=== PATIENT | female | born 1955 | race Asian ===

== ENCOUNTER 2019-09-20 20:42 | Inpatient (IN) | payer BC ==
[~2019-09-20] VITALS: Ht 160 cm; Wt 72.6 kg
[2019-09-20 20:42] VITALS: BP_SYST 137
[~2019-09-20 20:42] MED LIST: ALBMDI INH; LISI5TAB PO; METF1000 PO; METO50TA7 PO; MONT10TA25 PO; NOR10 PO; SITA1TAB10 PO; TRIA1CAP53 PO
[2019-09-20] MEDS ORDERED: AMIO100T4 PO (20:53)
[2019-09-20] MEDS ORDERED: COLC0.6T67 PO (20:53)
[2019-09-20] MEDS ORDERED: NOR10 PO (20:53)
[2019-09-20] MEDS ORDERED: BENZ-16 PO (20:53)
[2019-09-20] MEDS ORDERED: ALLO300T2 PO (20:53)
[2019-09-20] MEDS ORDERED: RIFA300C2 PO (21:03)
[2019-09-20] MEDS ORDERED: FENO67CA PO (21:03)
[2019-09-20] MEDS ORDERED: ACET-2165 PO (21:03)
[2019-09-20] MEDS ORDERED: PRO40 PO (21:03)
[2019-09-20] MEDS ORDERED: DEXT50DI5 IV (21:03)
[2019-09-20] MEDS ORDERED: ENOX40DI8 SQ (21:03)
[2019-09-20] MEDS ORDERED: SSNOVOLOG SUBCUT (21:03)
[2019-09-20] MEDS ORDERED: VANC1.2525 IV (21:03)
--- NOTE | 2019-09-20 21:04 | NUR ---
Medication reconciliation completed with information provided by patient's order summary from [facility]. Any prior medication reconciliation on file was reviewed and corrected.
--- NOTE | 2019-09-20 21:05 | NUR ---
Patient's code status is full code paperwork completed and placed in chart.
--- NOTE | 2019-09-20 21:08 | NUR ---
Placed in room 5. Placed on youtuber, blood pressure machine and pulse oximeter. To gown for exam. Side rails up.
--- NOTE | 2019-09-20 21:13 | NUR ---
Pt BIB EMS from [facility] with with c/o SOB. Pt A&Ox4. Pt states SOB began today after physical therapy. Pt states she discharged from [facility] yesterday after a 6 week stay for septicemia of the right knee. Pt has PICC line located in right AC where she states she is getting Vancomycin and Rifampin. Pt denies chest pain, fever, cough, nausea, and vomiting. Pt states right knee pain and states pain 6/10. Pt presents with bilateral 2+ pitting edema to lower extremities. Breath sounds are bilaterally clear with no use of accessory muscles. Will continue to monitor.
--- NOTE | 2019-09-20 22:00 | NUR ---
Patient moved to bed 2
--- NOTE | 2019-09-20 22:09 | NUR ---
ER Dr. Kaur at bedside examining patient.
--- NOTE | 2019-09-20 22:35 | NUR ---
Radiology at bedside.
[2019-09-20 23:32] LABS: CALCIUM 7.8 mg/dL (8.4-11.0); CREATININE 0.91 mg/dL (0.55-1.30); POTASSIUM 4.5 mmol/L (3.5-5.1)
[2019-09-20 23:33] LABS: PROTHROMBIN TIME 9.8 SECS (9.5-12.5)
[2019-09-20 23:40] LABS: ALBUMIN 1.5 g/dL (3.4-4.8); TOTAL BILIRUBIN 0.5 mg/dL (0.0-1.0)
[2019-09-20 23:54] LABS: HEMOGLOBIN 8.3 g/dL (12.0-16.0); MEAN CORPUSCULAR HEMOGLOBIN 30 pg (27-31); MEAN CORPUSCULAR HGB CONC 33 % (32-36); MEAN CORPUSCULAR VOLUME 90 fL (79.0-98.0); PLATELET COUNT (AUTO) 344 K/uL (130-430); RED BLOOD CELL COUNT(AUTO) 2.78 MIL/uL (4.2-6.2); RED CELL DISTRIBUTION WIDTH 15.5 % (9.0-15.0)
--- NOTE | 2019-09-20 23:54 | NUR ---
Pt medicated per MD orders. Pt tolerated well. Will continue to monitor.
[2019-09-20 23:57] LABS: WHITE BLOOD COUNT (AUTO) 1.6 K/uL (4.8-10.8)
[2019-09-21] MEDS ORDERED: IBUPROFEN 400 MG TABLET ONE ×2 (00:03→16:09)
--- NOTE | 2019-09-21 00:13 | NUR ---
Pt given perineal care and linens changed. Pt tolerated well. Will continue to monitor.
--- NOTE | 2019-09-21 00:50 | NUR ---
ER Dr. Bhardwaj at bedside examining patient.
--- NOTE | 2019-09-21 01:16 | NUR ---
550 mL urine output from Montero bag emptied.
[2019-09-21 01:19] LABS: ATYPICAL LYMPHOCYTES % 0 % (0-0); BAND % (MANUAL) 0 % (0-6); LYMPHOCYTES % (MANUAL) 36 % (20-46)
[2019-09-21 01:20] LABS: BASOPHILS % (MANUAL) 0 % (0-2); EOSINOPHILS % (MANUAL) 0 % (0-7); MONOCYTES % (MANUAL) 20 % (0-11)
[2019-09-21] MEDS ORDERED: BENZONATATE 100 MG CAPSULE (TESSALON) PO PRN (01:30)
[2019-09-21] MEDS ORDERED: DEXTROSE 50% JECT 50 ML DISP.SYRIN IV PRN (01:30)
[2019-09-21] MEDS ORDERED: ACETAMINOPHEN 325 MG TABLET PO PRN ×2 (01:30)
--- NOTE | 2019-09-21 01:38 | NUR ---
Attempted to access CT with contrast consent. Pt states, "I will be allergic to that." MD Kaur made aware. MD Kaur states they can do VQ scan. Will continue to monitor.
--- NOTE | 2019-09-21 01:53 | NUR ---
Transfer to Telemetry 126A via ACLS protocol. Licensed nurse present. IV present no signs or symptoms of infiltration.
--- NOTE | 2019-09-21 02:03 | NUR ---
ADMISSION NOTE Received patient from ER via gurney. Patient admitted with diagnosis of CHF. Patient is awake, alert, oriented X 3. Patient oriented to hospital room, call light, toileting, pain management and safety-teach back done. Patient informed that MYLENE Smith will be primary nurse and that their room number is 126 A. Personal belongings checked and Belongings List documented. Call light within reach.
[2019-09-21 02:33] VITALS: BP_SYST 151
[2019-09-21] MEDS ORDERED: VANCOMYCIN HCL 1 GM/NS PREMIX 250 ML IV SCH (03:00)
--- NOTE | 2019-09-21 03:00 | NUR ---
INITIAL NOTE AT INITIAL ASSESSMENT, PATIENT IS RESTING IN BED, STABLE, NO SIGNS OF RESPIRATORY DISTRESS. PATIENT VERBALIZES TOLERABLE PAIN. PLAN OF CARE FOR THE EVENING IS COMMUNICATED WITH THE PATIENT AND HER AT BEDSIDE. PATIENT SUCCESSFULLY DEMONSTRATES CORRECT USAGE OF CALL LIGHT AT THIS TIME. BED IS LOCKED, ALARMED, AND AT THE LOWEST LEVEL. FALL, SAFETY, RESPIRATORY, ASPIRATION, AND ISOLATION PRECAUTIONS WILL BE TAKEN THROUGHOUT THE SHIFT.
[2019-09-21] MEDS ORDERED: IBUPROFEN 400 MG TABLET PO ONE ×3 (03:30→07:15)
--- NOTE | 2019-09-21 03:46 | NUR ---
CONSULTATION PAGED/CALLED Reason for Consultation: CHF Person Who was Notified: NAUN RIDES SUPERVISOR 22 Consulting Physician: CEDRIC Engine Repair Supervisor Specialty: Ordering Physician: KARLIE
[2019-09-21] MEDS ORDERED: VANCOMYCIN HCL 1000 MG/VIAL IV ONE (04:27)
--- NOTE | 2019-09-21 04:30 | NUR ---
BIPAP PLACED BIPAP PLACED AT THIS TIME BY RT PER PATIENT REQUEST. SHE IS TOLERATING WELL.
[2019-09-21 04:46] VITALS: BP_SYST 151
--- NOTE | 2019-09-21 05:00 | NUR ---
WOUND CARE/ HYGIENE NOTE WOUND CARE AND HYGIENE CARE PROVIDE AT THIS TIME, PATIENT TOLERATED WELL. SHE IS REPOSITIONED FOR COMFORT. CALL LIGHT IS WITHIN REACH. BED IS LOCKED, ALARMED, AND AT THE LOWEST LEVEL.
[2019-09-21] MEDS: NORMAL SALINE 5 ML DISP.SYRIN IVF SCH ×2 (06:34→22:00)
--- NOTE | 2019-09-21 06:35 | NUR ---
CLOSING NOTE PATIENT SLEPT WELL THROUGHOUT THE SHIFT. AT THIS TIME, PATIENT IS RESTING IN BED, STABLE, NO SIGNS OF RESPIRATORY DISTRESS. CALL LIGHT IS WITHIN REACH. BED IS LOCKED, ALARMED, AND AT THE LOWEST LEVEL. FALL, SAFETY, RESPIRATORY AND ISOLATION PRECAUTIONS HAVE BEEN TAKEN THROUGHOUT THE SHIFT.
[2019-09-21 07:44] LABS: BASOPHILS # (AUTO) 0.1 K/uL (0.0-0.2); BASOPHILS % (AUTO) 3.4 % (0.0-2.0); EOSINOPHILS % (AUTO) 0.6 % (0.0-4.0); HEMATOCRIT 22.9 % (36-48); HEMOGLOBIN 7.7 g/dL (12.0-16.0); LYMPHOCYTES # (AUTO) 0.6 K/uL (1.0-5.5); LYMPHOCYTES % (AUTO) 36.6 % (20.5-51.5); MEAN CORPUSCULAR HEMOGLOBIN 31 pg (27-31); MEAN CORPUSCULAR HGB CONC 34 % (32-36); MEAN CORPUSCULAR VOLUME 90 fL (79.0-98.0); MONOCYTES # (AUTO) 0.5 K/uL (0.0-1.0); MONOCYTES % (AUTO) 31.5 % (1.7-9.3); NEUTROPHILS % (AUTO) 27.9 % (40.0-70.0); PLATELET COUNT (AUTO) 329 K/uL (130-430); RED BLOOD CELL COUNT(AUTO) 2.54 MIL/uL (4.2-6.2); RED CELL DISTRIBUTION WIDTH 15.3 % (9.0-15.0)
[2019-09-21 07:52] LABS: ALBUMIN 1.6 g/dL (3.4-4.8); CALCIUM 7.8 mg/dL (8.4-11.0); CREATININE 0.93 mg/dL (0.55-1.30); POTASSIUM 4.5 mmol/L (3.5-5.1); TOTAL BILIRUBIN 0.5 mg/dL (0.0-1.0)
[2019-09-21 08:00] VITALS: BP_SYST 130
--- NOTE | 2019-09-21 08:00 | NUR ---
initial notes rec patient awake alert with ivf infusing well on the r upper arm picc line. no infiltration noted. resp easy and unlabored. no sob noted. bed to the lowest position and side rails up and locked. call light within reached.
[2019-09-21 08:06] LABS: NEUTROPHILS # (AUTO) 0.5 K/uL (1.8-7.7); WHITE BLOOD COUNT (AUTO) 1.6 K/uL (4.8-10.8)
[2019-09-21] MEDS: COLCHICINE 0.6 MG TABLET PO SCH ×2 (09:00→13:06)
[2019-09-21] MEDS ORDERED: ENOXAPARIN SODIUM 40 MG/0.4 ML SYRINGE SQ SCH (09:00)
[2019-09-21] MEDS ORDERED: FUROSEMIDE 40 MG/4 ML VIAL IVP ONE (09:00)
[2019-09-21] MEDS: FUROSEMIDE 40 MG/4 ML VIAL IVP SCH ×2 (09:28→22:04)
[2019-09-21] MEDS: RIFAMPIN 300 MG CAPSULE PO SCH ×2 (09:29→22:04)
[2019-09-21] MEDS: AMIODARONE HCL 200 MG TABLET PO SCH (09:30)
[2019-09-21] MEDS: ALLOPURINOL 300 MG TABLET (ZYLOPRIM) PO SCH (09:30)
[2019-09-21] MEDS: amLODIPine BESYLATE 10 MG TABLET PO SCH (09:31)
[2019-09-21] MEDS: PANTOPRAZOLE SODIUM 40 MG TAB PO SCH (09:31)
--- NOTE | 2019-09-21 09:46 | NUR ---
Nutrition Update Noel Scale 15 noted. Pt admitted for CHF. Diet: [facility] BMI: 29.9 kg/m2 RD to follow per nutrition care standards.
[2019-09-21] MEDS ORDERED: VANCOMYCIN HCL 1,250 MG in NS 250 ML IV SCH (10:00)
--- NOTE | 2019-09-21 10:49 | NUR ---
CONSULTATION PAGED/CALLED Reason for Consultation: SOB Person Who was Notified: DR. ABRAHAM Consulting Physician: DR. ABRAHAM Field Foreman Specialty: BLENDING MACHINE OPERATOR Ordering Physician: DR. LILLY
--- NOTE | 2019-09-21 10:50 | NUR ---
CONSULTATION PAGED/CALLED Reason for Consultation: CELLULITIS Person Who was Notified: WENDY Consulting Physician: DR. LAZARO Die Technician Specialty: I/D Ordering Physician: DR. LILLY
[2019-09-21] MEDS ORDERED: *LOVENOX 1MG/KG Q12H/PHARMACY XX SCH (11:00)
[2019-09-21] MEDS ORDERED: ENOXAPARIN SODIUM 40 MG/0.4 ML SYRINGE SUBCUT ONE (11:30)
--- NOTE | 2019-09-21 12:00 | NUR ---
rounds continue to be sitting at the commode at bedside. so sob noted.
--- NOTE | 2019-09-21 12:06 | NUR ---
rounds seen by dr hidalgo and with orders.no hypo hypo / hyper glycemic reaction nted. call flores mitchell
[2019-09-21] MEDS: PIPERACILLIN/TAZO 3.375/DEX-IS 50 ML IV SCH ×2 (13:05→13:06)
[2019-09-21 13:19] VITALS: BP_SYST 128
--- NOTE | 2019-09-21 13:52 | NUR ---
Wound Evaluation: Wound Consult ordered for Low Noel Score. Patient evaluated for a low Noel score of 15. Patient was awake, alert, oriented and received in a Morelia Bed with an IsoFlex WOODY mattress. Patient needs assist to turn in bed. Recommend encourage and assist patient as needed with repositioning side to side only every 2 hours with pillow support. Elevate, off-load and float bilateral heels with pillows. Offload pressure areas with pillows for pressure re-distribution. Perform skin care and monitor skin integrity Q shift. Use moisture barrier cream on moisture susceptible areas QID and PRN for soiling. Initiate low air-loss therapy.
[2019-09-21] MEDS ORDERED: IOHEXOL 350 mgI/mL, 150 ML INFUS..BTL IV ONE (15:10)
[2019-09-21 16:13] VITALS: BP_SYST 135
--- NOTE | 2019-09-21 17:13 | NUR ---
Dietitian Recommendations * Recommend continuing [facility] diet * Encourage increase PO intakes LP, RD Please refer to Nutrition Assessment for details. Addendum: 09/21/19 at [address] Amended: Links added.
[2019-09-21] MEDS ORDERED: *CUBICIN 6 MG/KG Q24H/PHARMACY XX PRN (17:30)
[2019-09-21] MEDS ORDERED: DAPTOmycin 500 MG in NS 50 ML IV SCH (18:00)
--- NOTE | 2019-09-21 18:10 | NUR ---
RT NOTE: 1800 Pt taken off BiPAP and placed on 3LPM NC for CT transport.
--- NOTE | 2019-09-21 19:00 | NUR ---
closing notes pt is back in the room. no sob noted. resting comfortably witha bipap. no osb noted.
--- NOTE | 2019-09-21 19:53 | NUR ---
PATIENT RECIEVED WITH COMPLAINTS OF PAIN TO THE RIGHT KNEE AND IS AWARE THAT THE PAIN MEDICATION IBUBROFEN IS NOT YET DUE.CUBICIN DOSE COMPLETED AND TOLERATED WITH NO UNTOWARD MANIFSTATION
--- NOTE | 2019-09-21 19:59 | NUR ---
HBG 7.7 /DR LILLY IS AWARE WITH NO ORDERS FOR IT, Addendum: 09/21/19 at 2221 by Zero pipeline integrity engineer LOVENOX DOSE GIVEN ORDERED
[2019-09-21 20:00] VITALS: BP_SYST 122
[2019-09-21] MEDS ORDERED: ENOXAPARIN SODIUM 80 MG/0.8 ML SYRINGE SUBCUT SCH (21:00)
--- NOTE | 2019-09-21 22:37 | NUR ---
CURRENTLY ON BIPAP AND TOLERATING WELL.
[2019-09-22] MEDS: IBUPROFEN 400 MG TABLET PO PRN ×4 (00:31→20:28)
--- NOTE | 2019-09-22 01:00 | NUR ---
IS OFF BIPAP AND PLACED PN 02 AT 2LITERS NASAL CANNULA
[2019-09-22 01:11] VITALS: BP_SYST 151
[2019-09-22] MEDS: NORMAL SALINE 5 ML DISP.SYRIN IVF SCH ×3 (05:50→20:33)
[2019-09-22 06:07] LABS: CREATININE 0.95 mg/dL (0.55-1.30); POTASSIUM 3.4 mmol/L (3.5-5.1)
[2019-09-22 06:35] LABS: EOSINOPHILS % (AUTO) 0.5 % (0.0-4.0); HEMATOCRIT 22.6 % (36-48); HEMOGLOBIN 7.5 g/dL (12.0-16.0); LYMPHOCYTES # (AUTO) 0.5 K/uL (1.0-5.5); LYMPHOCYTES % (AUTO) 40.9 % (20.5-51.5); MEAN CORPUSCULAR HEMOGLOBIN 30 pg (27-31); MEAN CORPUSCULAR HGB CONC 33 % (32-36); MEAN CORPUSCULAR VOLUME 90 fL (79.0-98.0); MONOCYTES # (AUTO) 0.4 K/uL (0.0-1.0); MONOCYTES % (AUTO) 33.7 % (1.7-9.3); NEUTROPHILS % (AUTO) 21.9 % (40.0-70.0); PLATELET COUNT (AUTO) 336 K/uL (130-430); RED CELL DISTRIBUTION WIDTH 15.6 % (9.0-15.0)
--- NOTE | 2019-09-22 07:45 | NUR ---
INITIAL NOTE PT AWAKE, RESTING IN BED. AT BEDSIDE. PT ON 2L NC TOLERATING WELL. IV SALINE LOCKED. DARLING DRAINING TO GRAVITY. CALL LIGHT WITHIN REACH, BED IN LOW AND LOCKED POSITION WITH BED ALARM ON.
[2019-09-22] MEDS: FUROSEMIDE 40 MG/4 ML VIAL IVP SCH ×2 (08:15→20:27)
[2019-09-22] MEDS: ALLOPURINOL 300 MG TABLET (ZYLOPRIM) PO SCH (08:16)
[2019-09-22] MEDS: PANTOPRAZOLE SODIUM 40 MG TAB PO SCH (08:16)
[2019-09-22] MEDS: amLODIPine BESYLATE 10 MG TABLET PO SCH (08:16)
[2019-09-22] MEDS: COLCHICINE 0.6 MG TABLET PO SCH (08:17)
[2019-09-22] MEDS: FENOFIBRATE NANOCRYSTALLIZED 48 MG TABLET (TRICOR) PO SCH (08:17)
[2019-09-22] MEDS: RIFAMPIN 300 MG CAPSULE PO SCH ×2 (08:17→20:27)
[2019-09-22] MEDS: AMIODARONE HCL 200 MG TABLET PO SCH (08:17)
[2019-09-22 08:32] LABS: WHITE BLOOD COUNT (AUTO) 1.3 K/uL (4.8-10.8)
[2019-09-22 08:33] LABS: NEUTROPHILS # (AUTO) 0.3 K/uL (1.8-7.7)
[2019-09-22] MEDS: IPRATROPIUM/ALBUTEROL SULFATE 3 ML AMPUL.NEB (DUONEB) INH PRN ×2 (08:38→14:54)
--- NOTE | 2019-09-22 09:00 | NUR ---
DR. ABRAHAM/RN ROUNDS PT COMPLAINING OF PAIN. EDUCATED PT USES AND SIDE EFFECTS OF MOTRIN, PT VERBALIZED UNDERSTANDING, MOTRIN ADMINISTERED. MD AT BEDSIDE EXAMINING PT. INFORMED MD THAT PT WBC 1.3, ABSOLUTE NEUTROPHIL 0.3. SCHEDULED LOVENOX 80MG WAS NOT ADMINISTERED, MD AWARE AND AGREEABLE, MD TO CHANGE LOVENOX DOSAGE TO 30MG DAILY. VERIFIED WITH READ BACK. Addendum: 09/22/19 at 1416 by Benita Cason RN MD TO REQUEST INCENTIVE SPIROMETER AT BEDSIDE. EDUCATED PT ON INCENTIVE SPIROMETER, PT DEMONSTRATED BACK, 500 VOLUME.
--- NOTE | 2019-09-22 09:10 | NUR ---
CRITICAL LAB/DR. BLACK SPOKE WITH MD VIA PHONE, INFORMED MD WBC 1.3, ABSOLUTE NEUTROPHILS 0.3. MD TO PLACE PT ON REVERSE ISOLATION. VERIFIED WITH READ BACK.
[2019-09-22] MEDS ORDERED: ENOXAPARIN SODIUM 30 MG/0.3 ML SYRINGE SUBCUT ONE (09:15)
--- NOTE | 2019-09-22 11:45 | NUR ---
UP WITH PHYSICAL THERAPY ASSISTED PATIENT UP TO CHAIR WITH PHYSICAL THERAPY. PT TOLERATED WELL. REMOVED 2L NC, PT PLACED ON BIPAP.
[2019-09-22 13:20] VITALS: BP_SYST 122
--- NOTE | 2019-09-22 13:45 | NUR ---
RN ROUNDS PT IN BED BEING FED BY DAUGHTER AT BEDSIDE. PT DENIES ANY PAIN OR DISCOMFORT AT THIS TIME. WILL CONTINUE TO MONITOR.
--- NOTE | 2019-09-22 15:45 | NUR ---
RN ROUNDS PT RESTING QUIETLY, NO ACUTE DISTRESS NOTED, BREATHING EVEN AND UNLABORED. PT ON BIPAP.
[2019-09-22 16:26] VITALS: BP_SYST 146
--- NOTE | 2019-09-22 16:49 | NUR ---
PHYSICAL THERAPY CO-SIGN The Physical Therapy Progress Notes documented by Bods Developer have been reviewed. Reviewed/Co-Signed by: Anastasiya Oconnor PT Documentation Done by:VIV ALVARADO REGISTRATION CLERK POC REVIEWED W/ REGISTRATION CLERK 09/21/19 CTA CHEST:(-)NM 09/22/19 Hgb=7.5 Addendum: 09/24/19 at 1650 by Anastasiya Oconnor PT Amended: Links added.
[2019-09-22] MEDS: DAPTOmycin 450 MG in NS 50 ML IV SCH (17:10)
--- NOTE | 2019-09-22 17:45 | NUR ---
RN ROUNDS PT AWAKING AND COMFORTABLE. PAIN CONTROLLED AT THIS TIME, WILL CONTINUE TO MONITOR.
--- NOTE | 2019-09-22 18:31 | NUR ---
CLOSING NOTE PT AWAKE, PAIN CONTROLLED AT THIS TIME. IV SALINE LOCKED. AT BEDSIDE. ISOLATION PRECAUTIONS IN PLACE. CALL LIGHT WITHIN REACH, BED IN LOW AND LOCKED POSITION WITH BED ALARM ON. ALL NEEDS MET THROUGHOUT SHIFT. WILL CONTINUE TO MONITOR UNTIL PT CARE IS ENDORSED TO E MERCHANT RN.
[2019-09-22 19:55] VITALS: BP_SYST 117
--- NOTE | 2019-09-22 19:55 | NUR ---
OPENING NOTES Received report from MYLENE Joy. Patient is resting in bed, awake, breathing evenly and nonlabored on 2L of oxygen via NC, at bedside. Patient has a PICC line on the [facility], patent and benign, no s/s of infection or infiltration at this time, dressing change due 09/26/2019. Patient has a Montero catheter, secured and draining by gravity. Educated patient and on plan of care, fall/safety/aspiration/isolation precautions, call light system, patient and stated understanding with return demonstration. Bed is locked, armed, and at lowest position, will continue to monitor.
--- NOTE | 2019-09-22 20:30 | NUR ---
MEDICATIONS/ROUNDS Patient is resting in bed, awake, breathing evenly and nonlabored on 2L of oxygen via NC, at bedside. Patient was complaining of pain, educated patient and on pain management, nonpharmacological interventions, pain medication, and due medications, patient and stated understanding. Administered medications, patient tolerated them well. No other needs at this time. Fall/safety/aspiration/isolation precautions, will continue to monitor.
--- NOTE | 2019-09-22 22:30 | NUR ---
ROUNDS Patient is resting in bed, awake, breathing evenly and nonlabored on 2L of oxygen via NC, at bedside. Patient was repositioned earlier, asking for snacks which was provided. No s/s of distress at this time, no other needs at this time. Fall/safety/aspiration/isolation precautions, will continue to monitor.
[2019-09-23 00:30] VITALS: BP_SYST 126
--- NOTE | 2019-09-23 00:30 | NUR ---
ROUNDS Patient is resting in bed, eyes closed, breathing evenly and nonlabored on BIPAP which was started on 09/22/2019 at 2240, at bedside. Patient was repositioned earlier. No other needs at this time. Fall/safety/aspiration/isolation precautions, will continue to monitor.
--- NOTE | 2019-09-23 02:30 | NUR ---
ROUNDS Patient is resting in bed, eyes closed, breathing evenly and nonlabored on BIPAP. Patient was repositioned earlier. No other needs at this time. Fall/safety/aspiration/isolation precautions, will continue to monitor.
[2019-09-23 04:05] VITALS: BP_SYST 116
[2019-09-23] MEDS: IBUPROFEN 400 MG TABLET PO PRN ×4 (04:17→20:44)
--- NOTE | 2019-09-23 04:22 | NUR ---
PAIN MEDICATION GIVEN Patient is resting in bed, awake, breathing evenly and nonlabored on 2L of oxygen via NC. BIPAP was stopped at 0345. Patient was repositioned earlier. Patient was complaining of pain, educated patient on pain medication, patient stated understanding. Administered medication, patient tolerated it well. No other needs at this time. Fall/safety/aspiration/isolation precautions, will continue to monitor.
[2019-09-23] MEDS: NORMAL SALINE 5 ML DISP.SYRIN IVF SCH ×3 (05:17→20:55)
--- NOTE | 2019-09-23 05:30 | NUR ---
ROUNDS Patient is resting in bed, awake, breathing evenly and nonlabored on 2L of oxygen via NC. PICC line flushed, no s/s of infiltration or infection noted. Hygiene care was performed earlier. No other needs at this time. Fall/safety/aspiration/isolation precautions, will continue to monitor.
--- NOTE | 2019-09-23 06:06 | NUR ---
ROUNDS Patient is resting in bed, eyes closed, breathing evenly and nonlabored on 2L of oxygen via NC, at bedside. Needs met throughout the shift. No s/s of distress at this time, no other needs at this time. Fall/safety/aspiration/isolation precautions, will endorse care to morning shift RN. Addendum: 09/23/19 at 0608 by Uriel Araujo RN CLOSING NOTES Patient is resting in bed, eyes closed, breathing evenly and nonlabored on 2L of oxygen via NC, at bedside. Needs met throughout the shift. No s/s of distress at this time, no other needs at this time. Fall/safety/aspiration/isolation precautions, will endorse care to morning shift RN.
[2019-09-23 06:21] LABS: CREATININE 0.99 mg/dL (0.55-1.30); POTASSIUM 3.4 mmol/L (3.5-5.1)
[2019-09-23 06:53] LABS: BASOPHILS % (AUTO) 2.8 % (0.0-2.0); EOSINOPHILS % (AUTO) 0.3 % (0.0-4.0); LYMPHOCYTES # (AUTO) 0.4 K/uL (1.0-5.5); LYMPHOCYTES % (AUTO) 33.8 % (20.5-51.5); MEAN CORPUSCULAR HEMOGLOBIN 31 pg (27-31); MEAN CORPUSCULAR HGB CONC 34 % (32-36); MEAN CORPUSCULAR VOLUME 91 fL (79.0-98.0); MONOCYTES # (AUTO) 0.5 K/uL (0.0-1.0); MONOCYTES % (AUTO) 39.8 % (1.7-9.3); NEUTROPHILS % (AUTO) 23.3 % (40.0-70.0); PLATELET COUNT (AUTO) 342 K/uL (130-430); RED BLOOD CELL COUNT(AUTO) 2.24 MIL/uL (4.2-6.2); RED CELL DISTRIBUTION WIDTH 15.4 % (9.0-15.0)
--- NOTE | 2019-09-23 07:35 | NUR ---
INITIAL NOTE PT AWAKE, REPOSITIONED FOR COMFORT. IV SALINE LOCKED. AT BEDSIDE. PAIN CONTROLLED AT THIS TIME. CALL LIGHT WITHIN REACH, BED IN LOW AND LOCKED POSITION WITH BED ALARM ON. ISOLATION PRECAUTIONS IN PLACE.
[2019-09-23] MEDS: IPRATROPIUM/ALBUTEROL SULFATE 3 ML AMPUL.NEB (DUONEB) INH PRN ×2 (08:36→17:41)
[2019-09-23] MEDS: ENOXAPARIN SODIUM 30 MG/0.3 ML SYRINGE SUBCUT SCH (08:47)
[2019-09-23] MEDS: FENOFIBRATE NANOCRYSTALLIZED 48 MG TABLET (TRICOR) PO SCH (08:48)
[2019-09-23] MEDS: FUROSEMIDE 40 MG/4 ML VIAL IVP SCH ×2 (08:48→20:53)
[2019-09-23] MEDS: PANTOPRAZOLE SODIUM 40 MG TAB PO SCH (08:48)
[2019-09-23] MEDS: ALLOPURINOL 300 MG TABLET (ZYLOPRIM) PO SCH (08:48)
[2019-09-23] MEDS: AMIODARONE HCL 200 MG TABLET PO SCH (08:48)
[2019-09-23] MEDS: RIFAMPIN 300 MG CAPSULE PO SCH ×2 (08:48→20:44)
[2019-09-23] MEDS: COLCHICINE 0.6 MG TABLET PO SCH (08:48)
[2019-09-23] MEDS: amLODIPine BESYLATE 10 MG TABLET PO SCH (08:49)
[2019-09-23 09:35] LABS: HEMOGLOBIN 6.8 g/dL (12.0-16.0); NEUTROPHILS # (AUTO) 0.3 K/uL (1.8-7.7); WHITE BLOOD COUNT (AUTO) 1.3 K/uL (4.8-10.8)
--- NOTE | 2019-09-23 09:35 | NUR ---
RN ROUNDS PT AWAKE, PAIN CONTROLLED AT THIS TIME. REPOSITIONED FOR COMFORT. MORNING MEDICATIONS ADMINISTERED.
[2019-09-23 09:36] LABS: HEMATOCRIT 20.3 % (36-48)
--- NOTE | 2019-09-23 10:48 | NUR ---
CONSULTATION PAGED/CALLED Reason for Consultation: [] LOW HGB AND HCT Person Who was Notified: [] YANIRA Consulting Physician: [] DR MONTIEL Doll Surgeon Specialty: [] ONCO/ANNA MARIE Ordering Physician: [] DR Anne WALTON
[2019-09-23 10:55] LABS: ERYTHROCYTE SEDIMENTATION RATE > 140 MM/HR (0-20)
--- NOTE | 2019-09-23 11:30 | NUR ---
RN ROUNDS PT RESTING IN BED, REPOSITIONED FOR COMFORT. PAIN CONTROLLED AT THIS TIME. WILL CONTINUE TO MONITOR.
[2019-09-23] MEDS ORDERED: POTASSIUM CHLORIDE 20 MEQ TAB.PRT.SR PO ONE (11:45)
--- NOTE | 2019-09-23 11:45 | NUR ---
CRITICAL LAB/DR. ANTON CUEVAS AT NURSES STATION INFORMED MD OF CRITICAL LAB: HGB 6.8, HCT 20.3, WBC 1.3, ABS NEUTROPHILS 0.3. NEW ORDERS RECEIVED, VERIFIED WITH READ BACK.
[2019-09-23] MEDS ORDERED: CEFEPIME 2 GM in D5W 100 ML IV SCH (13:00)
--- NOTE | 2019-09-23 13:30 | NUR ---
START OF BLOOD TRANSFUSION TRANSFUSING ONE UNIT OF PRBC, VSS, WILL CONTINUE TO MONITOR.
[2019-09-23 13:54] VITALS: BP_SYST 120
--- NOTE | 2019-09-23 15:30 | NUR ---
RN ROUNDS PT RESTING QUIETLY, NO ACUTE DISTRESS NOTED, BREATHING EVEN AND UNLABORED. BLOOD INFUSING WELL.
[2019-09-23] MEDS: TBO-FILGRASTIM 480 MCG/0.8 ML SYRINGE SUBCUT SCH (16:13)
[2019-09-23 16:54] VITALS: BP_SYST 129
--- NOTE | 2019-09-23 17:00 | NUR ---
END OF BLOOD TRANSFUSION VSS, PT REPOSITIONED. PICC LINE FLUSHED, ANTIBIOTICS INFUSING WELL.
[2019-09-23] MEDS: DAPTOmycin 450 MG in NS 50 ML IV SCH (17:33)
[2019-09-23] MEDS: CEFEPIME 2 GM in D5W 100 ML IV SCH (17:41)
[2019-09-23] MEDS: INSULIN REGULAR, HUMAN 100 UNITS/ML, 10 ML VIAL (humuLIN R) SUBCUT PRN (17:46)
--- NOTE | 2019-09-23 19:30 | NUR ---
CLOSING NOTE PT RESTING IN BED, NO ACUTE DISTRESS NOTED, BREATHING EVEN AND UNLABORED. PT ON BIPAP. IV SALINE LOCKED. CALL LIGHT WITHIN REACH, BED IN LOW AND LOCKED POSITION WITH BED ALARM. ALL NEEDS MET THROUGHOUT SHIFT. PT CARE ENDORSED TO LEATHER DRESSER ZKAIA CHAKRABORTY. Addendum: 09/23/19 at 1945 by Benita Cason RN ENDORSED TO LEATHER DRESSER RN STOOL AND SPUTUM COLLECTION. PT AWARE.
--- NOTE | 2019-09-23 19:50 | NUR ---
OPENING NOTES Received report from MYLENE Joy. Patient is resting in bed, awake, breathing evenly and nonlabored on 3L of oxygen via NC, at bedside. Patient has a PICC line on the [facility], patent and benign, no s/s of infection or infiltration at this time, dressing change due 09/26/2019. Patient has a Montero catheter, secured and draining by gravity. Educated patient and on plan of care, fall/safety/aspiration/isolation precautions, call light system, patient and stated understanding with return demonstration. Bed is locked, armed, and at lowest position, will continue to monitor the patient.
[2019-09-23 20:00] VITALS: BP_SYST 106
--- NOTE | 2019-09-23 20:50 | NUR ---
MEDICATIONS/ROUNDS Patient is resting in bed, awake, breathing evenly and nonlabored on 3L of oxygen via NC, at bedside. Patient was complaining of pain, educated patient and on pain management, nonpharmacological interventions, pain medication, and due medications, patient and stated understanding. Administered medications, patient tolerated them all well. No other needs at this time. Fall/safety/aspiration/isolation precautions, will continue to monitor the patient. Addendum: 09/24/19 at 0800 by Uriel Araujo RN BS was checked, no coverage needed.
--- NOTE | 2019-09-23 22:30 | NUR ---
ROUNDS Patient is resting in bed, awake, breathing evenly and nonlabored on 3L of oxygen via NC, at bedside. Patient was repositioned earlier. No s/s of distress at this time, no other needs at this time. Fall/safety/aspiration/isolation precautions, will continue to monitor the patient.
[2019-09-24 00:05] VITALS: BP_SYST 131
--- NOTE | 2019-09-24 00:25 | NUR ---
ROUNDS Patient is resting in bed, eyes closed, breathing evenly and nonlabored on BIPAP, at bedside. Patient was repositioned earlier. No other needs at this time. Fall/safety/aspiration/isolation precautions, will continue to monitor the patient.
[2019-09-24] MEDS: IBUPROFEN 400 MG TABLET PO PRN (02:20)
--- NOTE | 2019-09-24 02:30 | NUR ---
PAIN MEDICATION GIVEN Patient is resting in bed, awake, breathing evenly and nonlabored on 3L of oxygen via NC. Patient was repositioned earlier. Patient was complaining of pain, educated patient on pain medication, patient stated understanding. Administered medication, patient tolerated it well. No other needs at this time. Fall/safety/aspiration/isolation precautions, will continue to monitor the patient.
--- NOTE | 2019-09-24 04:30 | NUR ---
ROUNDS Patient is resting in bed, awake, breathing evenly and nonlabored on 3L of oxygen via NC. Hygiene care was performed. No other needs at this time. Fall/safety/aspiration/isolation precautions, will continue to monitor the patient.
[2019-09-24] MEDS: CEFEPIME 2 GM in D5W 100 ML IV SCH ×2 (05:20→17:35)
[2019-09-24] MEDS: NORMAL SALINE 5 ML DISP.SYRIN IVF SCH ×3 (05:21→21:44)
--- NOTE | 2019-09-24 06:20 | NUR ---
CLOSING NOTES Patient is resting in bed, awake, breathing evenly and nonlabored on 3L of oxygen via NC, at bedside. BS was checked earlier, no coverage needed. PICC line was flushed earlier, both patent and benign. IV antibiotic was given, educated patient on medication, patient stated understanding. Administered medication, patient is tolerating it well. Needs met throughout the shift. No s/s of distress at this time, no other needs at this time. Fall/safety/aspiration/isolation precautions, will endorse care to morning shift RN.
[2019-09-24 06:53] LABS: HEMATOCRIT 24.8 % (36-48); HEMOGLOBIN 8.5 g/dL (12.0-16.0); MEAN CORPUSCULAR HEMOGLOBIN 30 pg (27-31); MEAN CORPUSCULAR HGB CONC 34 % (32-36); MEAN CORPUSCULAR VOLUME 88 fL (79.0-98.0); PLATELET COUNT (AUTO) 428 K/uL (130-430); RED CELL DISTRIBUTION WIDTH 15.9 % (9.0-15.0); WHITE BLOOD COUNT (AUTO) 3.5 K/uL (4.8-10.8)
--- NOTE | 2019-09-24 07:59 | NUR ---
OPENING NOTES RECEIVED BEDSIDE SBAR FROM EVENING RN, PATIENT IN BED ALERT, ORIENTED, RESPIRATIONS EVEN , NON LABORED, PATIENTS AT BEDSIDE, BED IN LOW AND LOCKED POSITION, CALL LIGHT WITHIN REACH
[2019-09-24 08:00] VITALS: BP_SYST 130
[2019-09-24 08:06] LABS: BILIRUBIN,URINE NEGATIVE (NEGATIVE); BLOOD, URINE NEGATIVE (NEGATIVE); CLARITY/URINE CLEAR (CLEAR); GLUCOSE,URINE NEGATIVE (NEGATIVE); KETONES,URINE NEGATIVE (NEGATIVE); LEUKOCYTE ESTERASE ,URINE TRACE (NEGATIVE); NITRITE, URINE NEGATIVE (NEGATIVE); PROTEIN URINE TRACE (NEGATIVE); UROBILINOGEN,URINE 0.2 (0.2-1.0)
[2019-09-24 08:18] LABS: COLOR,URINE AMBER (YELLOW)
[2019-09-24 08:31] LABS: CALCIUM 8.2 mg/dL (8.4-11.0); CREATININE 0.96 mg/dL (0.55-1.30)
[2019-09-24 09:13] LABS: C-REACTIVE PROTEIN QUANT 34.7 mg/dL (0-0.5)
[2019-09-24] MEDS: IBUPROFEN 800 MG TABLET PO PRN ×2 (09:16→17:35)
[2019-09-24] MEDS: FUROSEMIDE 40 MG/4 ML VIAL IVP SCH ×2 (09:28→21:38)
[2019-09-24] MEDS: ENOXAPARIN SODIUM 30 MG/0.3 ML SYRINGE SUBCUT SCH (09:29)
[2019-09-24] MEDS: PANTOPRAZOLE SODIUM 40 MG TAB PO SCH (09:29)
[2019-09-24] MEDS: ALLOPURINOL 300 MG TABLET (ZYLOPRIM) PO SCH (09:29)
[2019-09-24] MEDS: FENOFIBRATE NANOCRYSTALLIZED 48 MG TABLET (TRICOR) PO SCH (09:29)
[2019-09-24] MEDS: RIFAMPIN 300 MG CAPSULE PO SCH ×2 (09:30→21:38)
[2019-09-24] MEDS: amLODIPine BESYLATE 10 MG TABLET PO SCH (09:30)
[2019-09-24] MEDS: AMIODARONE HCL 200 MG TABLET PO SCH (09:31)
[2019-09-24 09:47] LABS: BACTERIA,URINE None Seen /HPF (None Seen); RBC,URINE 0-3 /HPF (0-3); YEAST,URINE Many /HPF (None Seen)
[2019-09-24] MEDS: COLCHICINE 0.6 MG TABLET PO SCH (09:47)
[2019-09-24 09:59] LABS: TOTAL IRON BIND. CAPACITY 127 ug/dL (250-450)
[2019-09-24 10:03] LABS: ERYTHROCYTE SEDIMENTATION RATE 123 MM/HR (0-20)
[2019-09-24 11:14] LABS: ATYPICAL LYMPHOCYTES % 2 % (0-0); BAND % (MANUAL) 21 % (0-6); BASOPHILS % (MANUAL) 0 % (0-2); EOSINOPHILS % (MANUAL) 0 % (0-7); LYMPHOCYTES % (MANUAL) 21 % (20-46); METAMYELOCYTES % 1 % (0-0); MONOCYTES % (MANUAL) 19 % (0-11)
[2019-09-24] MEDS: IPRATROPIUM/ALBUTEROL SULFATE 3 ML AMPUL.NEB (DUONEB) INH PRN (11:25)
--- NOTE | 2019-09-24 11:35 | NUR ---
LATE ACQUISITION ANALYST SECOND CALL TO PHARMACY REGARDING FERRLECIT, PHARMACY STATES WORKING ON MEDICATION AND WILL GET TO FLOOR SOON POSSIBLE WILL ADMINISTER SOON MEDICATION AVAILABLE
--- NOTE | 2019-09-24 13:00 | NUR ---
NURSE NOTES APPLIED BARRIER CREAM TO SACRUM, TURNED PATIENT, PATIENT TOLERATED WELL, BED IN LOW AND LOCKED POSITION, CALL LIGHT WITHIN REACH
[2019-09-24 13:15] VITALS: BP_SYST 126
--- NOTE | 2019-09-24 14:30 | NUR ---
NURSE NOTES BISQUE PLACER AT BEDSIDE FOR US OF CHEST, PATIENT ASKING TO HAVE US DONE AT 1800 TONIGHT, PER US TECH WILL COME BACK LATER TONIGHT
[2019-09-24 16:00] VITALS: BP_SYST 147
--- NOTE | 2019-09-24 16:00 | NUR ---
NURSE NOTE REPOSITIONED PATIENT, APPLIED BARRIER CREAM TO SACRUM, PATIENT TOLERATED WELL,
[2019-09-24] MEDS: TBO-FILGRASTIM 480 MCG/0.8 ML SYRINGE SUBCUT SCH (17:36)
--- NOTE | 2019-09-24 18:20 | NUR ---
NURSE NOTE PATIENT REQUESTED THAT US CHEST BE DONE TOMORROW, SHE WOULD LIKE TO SLEEP NOW AND DOES NOT WANT TO BE INTERRUPTED, WILL ADVISE US TECH.
[2019-09-24] MEDS: DAPTOmycin 450 MG in NS 50 ML IV SCH (18:47)
--- NOTE | 2019-09-24 19:09 | NUR ---
BLOOD TRANSFUSION/ CLOSING NOTE BLOOD TRANSFUSION COMPLETED, NO S/S OF TRANSFUSION REACTION NOTED, PATIENT DENIES ANY SHORTNESS OF BREATH, CHEAT PAIN, OR ANY CHANGE FROM BASELINE, GAVE BEDSIDE SBAR TO NIGHT RN, RADHA, RESPIRATIONS EVEN NON LABORED, BED IN LOW AND LOCKED POSITION, CALL LIGHT WITHIN REACH.
[2019-09-24 20:05] VITALS: BP_SYST 134
--- NOTE | 2019-09-24 20:50 | NUR ---
Opening notes Pt AAOx4, VSS, no s/s distress noted. Paged RT for Bipap order at night. IVF infusing at ordered rate ED PICC line dressing c/d/i. Montero catheter draining to gravity. Call light within reach. Bed low, locked, siderails up. Pt's son at bedside. Neutropenic precaution maintained. To monitor.
[2019-09-24 20:55] VITALS: BP_SYST 147
--- NOTE | 2019-09-24 21:41 | NUR ---
Blood sugar Pt asleep, easily arousable. Bipap on at night. Blood sugar checked 129. IVF infusing at ordered rate ED PICC line dressing c/d/i. Montero catheter draining to gravity. Call light within reach. Bed low, locked, siderails up. Pt's son at bedside. Neutropenic precaution maintained. To monitor.
--- NOTE | 2019-09-24 23:30 | NUR ---
Dr. Anisha egan MD aware of pt A-fib on the monitor.
[2019-09-25 00:22] VITALS: BP_SYST 123
[2019-09-25] MEDS: IBUPROFEN 800 MG TABLET PO PRN ×3 (01:47→17:33)
--- NOTE | 2019-09-25 01:50 | NUR ---
Pain med Pt c/o r. knee pain. Medicated with Motrin 800mg PO as needed given with food. Pt repositioned. Montero catheter draining to gravity with clear dark yellow urine. Call light within reach. Safety maintained. Pt's son at bedside. To monitor.
[2019-09-25] MEDS: CEFEPIME 2 GM in D5W 100 ML IV SCH ×2 (05:08→17:12)
--- NOTE | 2019-09-25 05:30 | NUR ---
Pericare Pericare/skin care provided to pt. Pt encouraged to reposition in bed. L buttock redness noted applied optifoam dressing. pt tolerated well. Montero catheter draining to gravity. To monitor.
[2019-09-25] MEDS: NORMAL SALINE 5 ML DISP.SYRIN IVF SCH ×3 (06:09→21:48)
--- NOTE | 2019-09-25 06:10 | NUR ---
Closing notes Pt alert, awake, no s/s distress noted. Pt on O2 3L via NC. Blood sugar checked 129 this AM. R. knee elevated on pillow, cooling measures applied. Pt repositioned. Call light within reach. Safety measures maintained. Pt son at bedside. To endorse to AM nurse.
[2019-09-25 06:52] LABS: BASOPHILS # (AUTO) 0.1 K/uL (0.0-0.2); BASOPHILS % (AUTO) 1.5 % (0.0-2.0); EOSINOPHILS % (AUTO) 0.1 % (0.0-4.0); HEMATOCRIT 25.7 % (36-48); HEMOGLOBIN 8.7 g/dL (12.0-16.0); LYMPHOCYTES # (AUTO) 0.9 K/uL (1.0-5.5); LYMPHOCYTES % (AUTO) 11.6 % (20.5-51.5); MEAN CORPUSCULAR HEMOGLOBIN 31 pg (27-31); MEAN CORPUSCULAR HGB CONC 34 % (32-36); MEAN CORPUSCULAR VOLUME 90 fL (79.0-98.0); NEUTROPHILS # (AUTO) 5.8 K/uL (1.8-7.7); PLATELET COUNT (AUTO) 470 K/uL (130-430); RED BLOOD CELL COUNT(AUTO) 2.86 MIL/uL (4.2-6.2); RED CELL DISTRIBUTION WIDTH 16.5 % (9.0-15.0); WHITE BLOOD COUNT (AUTO) 7.8 K/uL (4.8-10.8)
--- NOTE | 2019-09-25 07:55 | NUR ---
Opening note patient resting in bed, a/ox4, denies pain, PICC line is patent and infusing well, educated the patient and her son station installer light system and plan of care, they verbalized understanding, patient asking for suppository, will get an order from MD, no other needs at this time, continuing to monitor, bed in lowest position, two side rails up, call light is within reach, fall, isolation and aspiration precautions in place.
[2019-09-25 07:59] LABS: NEUTROPHILS % (AUTO) 73.8 % (40.0-70.0)
[2019-09-25] MEDS: PANTOPRAZOLE SODIUM 40 MG TAB PO SCH (08:21)
[2019-09-25] MEDS: RIFAMPIN 300 MG CAPSULE PO SCH ×2 (08:22→21:27)
[2019-09-25] MEDS: FENOFIBRATE NANOCRYSTALLIZED 48 MG TABLET (TRICOR) PO SCH (08:22)
[2019-09-25] MEDS: FUROSEMIDE 40 MG/4 ML VIAL IVP SCH ×2 (08:22→21:27)
[2019-09-25] MEDS: COLCHICINE 0.6 MG TABLET PO SCH (08:22)
[2019-09-25] MEDS: ALLOPURINOL 300 MG TABLET (ZYLOPRIM) PO SCH (08:22)
[2019-09-25] MEDS: AMIODARONE HCL 200 MG TABLET PO SCH (08:22)
[2019-09-25] MEDS: amLODIPine BESYLATE 10 MG TABLET PO SCH (08:22)
--- NOTE | 2019-09-25 08:22 | NUR ---
Medication/Dr. Stroud rounds patient resting in bed, awake, educated on medication uses and potential side effects, she verbalized understanding and tolerated well, her son is assisting her at the bedside, order for suppository obtained from Dr. Stroud who assessed the patient at bedside, will follow up with new orders, continuing to monitor the patient, bed in lowest position, two side rails up, call light is within reach, fall and aspiration precautions in place.
[2019-09-25] MEDS: ENOXAPARIN SODIUM 30 MG/0.3 ML SYRINGE SUBCUT SCH (08:27)
[2019-09-25 08:37] VITALS: BP_SYST 131
[2019-09-25] MEDS: BISACODYL 10 MG/SUPPOSITORY RC PRN (08:58)
--- NOTE | 2019-09-25 09:56 | NUR ---
Pain patient on bedside commode asking for Motrin prior to the rest of her physical therapy, educated the patient on medication uses and potential side effects, she verbalized understanding and tolerated well, patient being assisted physical therapist and PRODUCT DEVELOPMENT CONSULTANT at this time, continuing to monitor.
[2019-09-25 11:15] VITALS: BP_SYST 143
--- NOTE | 2019-09-25 11:34 | NUR ---
RN rounds patient resting in chair at bedside, awake, denies pain, denies shortness of breath, blood glucose checked, no insulin coverage per MD orders, no other needs at this time, bed in lowest position, call light is within reach, fall, isolation and aspiration precautions in place.
[2019-09-25 13:07] LABS: FOLATE (FOLIC ACID) 5.7 ng/mL (>3.0)
[2019-09-25 15:22] VITALS: BP_SYST 102
--- NOTE | 2019-09-25 15:54 | NUR ---
RN rounds patient resting in bed, eyes closed, breathing is even and unlabored, no signs of distress, patient is on Bipap at this time, continuing to monitor, bed in lowest position ,three side rails up, call light is within reach, fall, isolation and aspiration precautions in place.
--- NOTE | 2019-09-25 17:15 | NUR ---
RN rounds/Medication patient resting in bed, on Bipap at this time, educated on IV antibiotic uses and potential side effects, she verbalized understanding, PICC line is patent and infusing well, blood glucose checked, no insulin coverage per MD orders, patient waiting on pain medication to be due, will follow up, no other immediate needs, bed in lowest position, three side rails up, call light within reach, fall, aspiration and isolation precautions in place.
--- NOTE | 2019-09-25 17:33 | NUR ---
Pain patient resting in bed, educated the patient on PRN medication uses and potential side effects, she verbalized understanding and tolerated well, continuing to monitor, bed in lowest position, three side rails up, call light is within reach, fall, aspiration and isolation precautions in place.
[2019-09-25] MEDS: DAPTOmycin 450 MG in NS 50 ML IV SCH (18:24)
--- NOTE | 2019-09-25 18:24 | NUR ---
Medication patient resting in bed, on 2L nasal cannula at this time, tolerating well, educated on IV antibiotic uses and potential side effects, she verbalized understanding, PICC line is patent and infusing well, no other needs at this time, bed in lowest position, three side rails up, call light within reach, fall, aspiration and isolation precautions in place.
--- NOTE | 2019-09-25 18:35 | NUR ---
Closing note patient resting in bed, on 2L nasal cannula now, tolerating well, pain is better now, all needs met, will endorse report to NOC shift nurse, bed in lowest position, three side rails up, call light is within reach, fall, aspiration and isolation precautions in place.
[2019-09-25 19:50] VITALS: BP_SYST 121
--- NOTE | 2019-09-25 19:50 | NUR ---
Opening notes Pt AAOx4, VSS, no distress noted. Pt talking on phone with family. PICC line MATA dressing C/D/I. Montero catheter draining to gravity, with dark yellow urine. Pt repositioned. Dressing to L. buttock changed and cleansed. Photo taken. Pt had a bed bath per TRANSCRIPTION. Harpreet heels floated. Call light within reach. Son at bedside. To monitor.
[2019-09-25] MEDS: INSULIN REGULAR, HUMAN 100 UNITS/ML, 10 ML VIAL (humuLIN R) SUBCUT PRN (21:43)
--- NOTE | 2019-09-26 00:36 | NUR ---
Rounds Pt alert, awake, no s/s distress noted. Bipap on at night. Pt repositioned. PICC line dressing MATA clear, dry and intact. Call light within reach. Son at bedside. To monitor.
[2019-09-26 01:11] VITALS: BP_SYST 116
--- NOTE | 2019-09-26 01:15 | NUR ---
Pain Pt c/o pain R. knee. Motrin given with food as ordered. To monitor.
[2019-09-26] MEDS: IBUPROFEN 800 MG TABLET PO PRN ×3 (01:26→17:05)
[2019-09-26] MEDS: IPRATROPIUM/ALBUTEROL SULFATE 3 ML AMPUL.NEB (DUONEB) INH PRN (02:30)
--- NOTE | 2019-09-26 02:30 | NUR ---
Bipap on Pt repositioned and requested Bipap on. RT at bedside.
--- NOTE | 2019-09-26 06:05 | NUR ---
PICC line dressing changed PICC dressing changed via aseptic technique. Harpreet ports capped, flushes well with NS and good blood return. Pt tolerated well.
[2019-09-26] MEDS: CEFEPIME 2 GM in D5W 100 ML IV SCH ×2 (06:15→17:02)
[2019-09-26] MEDS: NORMAL SALINE 5 ML DISP.SYRIN IVF SCH ×3 (06:16→20:15)
--- NOTE | 2019-09-26 06:23 | NUR ---
Closing notes Pt asleep, easily arousable. No s/s distress noted. Pt has Bipap on. Blood sugar checked 129. Pt repositioned. Dressing to Left buttock dry and intact. Safety maintained. Call light within reach. To endorse to AM nurse.
--- NOTE | 2019-09-26 07:50 | NUR ---
Opening note patient resting in bed, a/ox4, denies pain, PICC line is patent and infusing well, educated the patient and her son concrete block molder light system and plan of care, they verbalized understanding, no other needs at this time, continuing to monitor, bed in lowest position, two side rails up, call light is within reach, fall, isolation and aspiration precautions in place.
--- NOTE | 2019-09-26 09:00 | NUR ---
Echocardiogram performed at beside, E.F. is 72%.
[2019-09-26] MEDS: FUROSEMIDE 40 MG/4 ML VIAL IVP SCH ×2 (09:12→20:15)
[2019-09-26] MEDS: RIFAMPIN 300 MG CAPSULE PO SCH ×2 (09:12→20:15)
[2019-09-26] MEDS: amLODIPine BESYLATE 10 MG TABLET PO SCH (09:13)
[2019-09-26] MEDS: ALLOPURINOL 300 MG TABLET (ZYLOPRIM) PO SCH (09:13)
[2019-09-26] MEDS: PANTOPRAZOLE SODIUM 40 MG TAB PO SCH (09:13)
[2019-09-26] MEDS: AMIODARONE HCL 200 MG TABLET PO SCH (09:13)
[2019-09-26] MEDS: FENOFIBRATE NANOCRYSTALLIZED 48 MG TABLET (TRICOR) PO SCH (09:14)
[2019-09-26] MEDS: COLCHICINE 0.6 MG TABLET PO SCH (09:14)
--- NOTE | 2019-09-26 09:15 | NUR ---
Medication patient resting in bed, awake, educated on scheduled and PRN medication uses and potential side effects, she verbalized understanding and tolerated well, PICC line is patent and infusing well, continuing to monitor the patient, bed in lowest position, two side rails up, call light is within reach, fall, isolation and aspiration precautions in place.
[2019-09-26] MEDS: ENOXAPARIN SODIUM 30 MG/0.3 ML SYRINGE SUBCUT SCH (09:19)
[2019-09-26 09:31] VITALS: BP_SYST 131
--- NOTE | 2019-09-26 11:00 | NUR ---
Dr. Helm rounds/Suture Removal assessed patient, DC reverse isolation. Dr. Helm removed x1 suture on the right knee, patient tolerated well, no bleeding or drainage. Will follow up with any new orders.
[2019-09-26] MEDS: INSULIN REGULAR, HUMAN 100 UNITS/ML, 10 ML VIAL (humuLIN R) SUBCUT PRN ×2 (11:28→20:20)
--- NOTE | 2019-09-26 11:39 | NUR ---
RN rounds patient resting in chair at bedside, awake, denies pain, some shortness of breath, blood glucose checked, insulin coverage per MD orders, Montero Catheter emptied, 850ml of ruma colored urine, called Dietary patient requesting a snack, bed in lowest position, call light is within reach, fall, isolation and aspiration precautions in place.
--- NOTE | 2019-09-26 11:39 | NUR ---
PHYSICAL THERAPY CO-SIGN The Physical Therapy Progress Notes documented by Technical Service Representative have been reviewed. Reviewed/Co-Signed by: Kd Denise PT Documentation Done by: VIV ALVARADO PTA Addendum: 09/26/19 at 1142 by Kd Denise PT Amended: Links added.
--- NOTE | 2019-09-26 11:53 | NUR ---
PHYSICAL THERAPY CO-SIGN The Physical Therapy Progress Notes documented by Historian Research Assistant have been reviewed. Reviewed/Co-Signed by: Kd Denise PT Documentation Done by: VIV ALVARADO PTA Addendum: 09/26/19 at 1154 by Kd Denise PT Amended: Links added.
[2019-09-26 12:04] VITALS: BP_SYST 116
--- NOTE | 2019-09-26 14:40 | NUR ---
RN rounds/wound care patient resting in bed, eyes closed, on Bipap at this time, tolerating, patient is easy to wake, re-assessed patient's skin with wound care nurse Darion RN at this time, patient tolerated well, repositioned the patient, no other needs at this time, continuing to monitor, bed in lowest position, two side rails up, call light within reach, fall, aspiration, and isolation precautions in place.
--- NOTE | 2019-09-26 14:40 | NUR ---
Wound Re-Evaluation: Late note for 09/26/2019 at 1440 secondary to patient care. Patient re-evaluated for a low Noel score of 15. Patient was awake, alert, oriented and received in a [place] Bed with an IsoFlex WOODY mattress. Patient needs assist to turn in bed. Skin assessment: 1. Left Buttock: Skin tear. Site has 100% pink tissue. No odor, no drainage. Measures 3.1 cm x 2.5 cm. Recommend: Cleanse skin with normal Saline. Pat dry. Apply moisture barrier cream to skin tear and tracey-tear area. Apply Hydrogel to any portion of skin tear not covered by moisture barrier cream. Cover with foam dressing. Perform site care daily, and as needed for dressing soiling or dislodgment. 2. Right Knee: Surgical incision, present on admission. Incision is approximated. No odor, no drainage. Measures 3.5 cm x 0.5 cm. 3. Right Lateral Knee: Surgical incision, present on admission. Incision is approximated. No odor, scant sanguineous drainage (suture removed by Dr. Helm this morning). Measures 1.0 cm x 0.7 cm. Recommend: Cleanse incisions with normal Saline. Pat dry. Cover with foam dressing. Perform site care daily, and as needed for dressing soiling or dislodgment. Recommend continue: Encourage and assist patient as needed with repositioning side to side only every 2 hours with pillow support. Elevate, off-load and float bilateral heels with pillows. Offload pressure areas with pillows for pressure re-distribution. Perform skin care and monitor skin integrity Q shift. Use moisture barrier cream on moisture susceptible areas QID and PRN for soiling. Maintain patient on low air-loss therapy.
[2019-09-26 16:58] VITALS: BP_SYST 124
--- NOTE | 2019-09-26 17:10 | NUR ---
RN rounds/Medication/Pain patient resting in bed, on 2L nasal cannula at this time, educated on IV antibiotic and pain medication uses and potential side effects, she verbalized understanding and tolerated well, PICC line is patent and infusing well, blood glucose checked, patient already ate the food her family brought her, no insulin coverage given, no other immediate needs, bed in lowest position, three side rails up, call light within reach, fall, aspiration and isolation precautions in place.
[2019-09-26] MEDS: DAPTOmycin 450 MG in NS 50 ML IV SCH (18:13)
--- NOTE | 2019-09-26 18:55 | NUR ---
Closing note patient resting in bed, on Bipap now, tolerating well, pain is better now, all needs met, will endorse report to NOC shift nurse, bed in lowest position, three side rails up, call light is within reach, fall, aspiration and isolation precautions in place.
--- NOTE | 2019-09-26 19:30 | NUR ---
Opening Note Received care of patient and SBAR report. Patient resting in bed, a/ox4, denies pain at this time, PICC line is patent and infusing well. Educated the patient and her son senior applications engineer light system and plan of care, they verbalized understanding. Patient denies needs at this time, will continue to monitor. Bed is in lowest position, two side rails up, call light is within reach, fall, isolation and aspiration precautions in place.
[2019-09-26 20:00] VITALS: BP_SYST 114
--- NOTE | 2019-09-26 20:20 | NUR ---
Medication Pass Scheduled medications administered to patient as ordered. Medications and potential side effects discussed. Accucheck showed blood sugar of 157, 2 units of regular insulin administered per sliding scale. No s/s of distress. Safety precautions are in place. Patient's son is at bedside. Will monitor.
--- NOTE | 2019-09-26 22:32 | NUR ---
Repositioned Patient repositioned with pillow support for comfort. Ice packs provided for patient's knee. Safety precautions maintained. Will monitor.
--- NOTE | 2019-09-27 00:05 | NUR ---
Repositioned Patient repositioned for comfort with pillow support. Safety precautions maintained. Will monitor.
[2019-09-27 00:37] VITALS: BP_SYST 134
[2019-09-27] MEDS: IBUPROFEN 800 MG TABLET PO PRN ×3 (01:05→16:55)
--- NOTE | 2019-09-27 01:05 | NUR ---
pain/motrin Patient requesting Motrin for pain to right knee. Motrin 800 mg po administered as ordered PRN for pain. Medication action and potential side effects discussed, patient verbalized understanding. Patient given ice packs for right knee. Safety precautions maintained, patient's son remains at bedside. Will continue to monitor.
--- NOTE | 2019-09-27 03:25 | NUR ---
Resting Patient resting in bed. No s/s of acute distress. Breathing is unlabored to Bipap settings. Patient's son is at bedside. Safety precautions are in place. Will monitor.
[2019-09-27] MEDS: CEFEPIME 2 GM in D5W 100 ML IV SCH ×2 (05:20→23:35)
[2019-09-27] MEDS: NORMAL SALINE 5 ML DISP.SYRIN IVF SCH ×3 (05:20→22:00)
--- NOTE | 2019-09-27 05:20 | NUR ---
ANTIBIOTIC SCHEDULED MAXIPIME ADMINISTERED ORDERED. NO S/S OF ADVERSE REACTION NOTED.
[2019-09-27 06:42] LABS: BASOPHILS # (AUTO) 0.1 K/uL (0.0-0.2); BASOPHILS % (AUTO) 1.1 % (0.0-2.0); EOSINOPHILS % (AUTO) 0.1 % (0.0-4.0); HEMOGLOBIN 7.8 g/dL (12.0-16.0); LYMPHOCYTES # (AUTO) 0.9 K/uL (1.0-5.5); LYMPHOCYTES % (AUTO) 8.4 % (20.5-51.5); MEAN CORPUSCULAR HEMOGLOBIN 30 pg (27-31); MEAN CORPUSCULAR HGB CONC 34 % (32-36); MEAN CORPUSCULAR VOLUME 89 fL (79.0-98.0); MONOCYTES % (AUTO) 9.7 % (1.7-9.3); NEUTROPHILS # (AUTO) 8.6 K/uL (1.8-7.7); PLATELET COUNT (AUTO) 371 K/uL (130-430); RED CELL DISTRIBUTION WIDTH 16.3 % (9.0-15.0); WHITE BLOOD COUNT (AUTO) 10.6 K/uL (4.8-10.8)
--- NOTE | 2019-09-27 07:13 | NUR ---
CLOSING NOTE PT RESTING IN BED, NO S/S OF ACUTE DISTRESS, BREATHING UNLABORED TO O2 VIA NC AT 2L. PT HAS FAMILY AT BEDSIDE. REPORT GIVEN TO MYLENE FUENTES FOR CONTINUITY OF CARE.
--- NOTE | 2019-09-27 07:20 | NUR ---
RECEIVED PATIENT AAOX 4. HAS OXYGEN 3LNC. LUNGS BILATERALLY WITH SLIGHT RHONCHI NOTED. AND DIMINISHED AT THE BASES. ABDOMEN SOFT AND NON DISTENDED. HAS PICC LINE 2 LUMEN NOTED. WITH DRESSING DRY/INTACT. HOB ELEVATED. HAS DARLING CATHETER IN PLACED AND DRAINING CLEAR YELLOW URINE. BED IN LOW POSITION, ALARMED AND LOCKED. CALL LIGHTS WITHIN REACH. WILL CONTINUE TO MONITOR PATIENTS STATUS.
[2019-09-27 07:56] LABS: NEUTROPHILS % (AUTO) 80.7 % (40.0-70.0)
--- NOTE | 2019-09-27 08:05 | NUR ---
motrin po and dulcolax suppository given at this time. made comfortable.
[2019-09-27 08:09] VITALS: BP_SYST 123
[2019-09-27] MEDS: BISACODYL 10 MG/SUPPOSITORY RC PRN (08:26)
[2019-09-27] MEDS: ENOXAPARIN SODIUM 30 MG/0.3 ML SYRINGE SUBCUT SCH (08:31)
[2019-09-27] MEDS: amLODIPine BESYLATE 10 MG TABLET PO SCH (08:32)
[2019-09-27] MEDS: COLCHICINE 0.6 MG TABLET PO SCH (08:32)
[2019-09-27] MEDS: FENOFIBRATE NANOCRYSTALLIZED 48 MG TABLET (TRICOR) PO SCH (08:32)
[2019-09-27] MEDS: PANTOPRAZOLE SODIUM 40 MG TAB PO SCH (08:32)
[2019-09-27] MEDS: FUROSEMIDE 40 MG/4 ML VIAL IVP SCH ×2 (08:32→23:18)
[2019-09-27] MEDS: ALLOPURINOL 300 MG TABLET (ZYLOPRIM) PO SCH (08:33)
[2019-09-27] MEDS: AMIODARONE HCL 200 MG TABLET PO SCH (08:33)
--- NOTE | 2019-09-27 09:10 | NUR ---
avery from the physical therapy came and assists patient to the commode and does physical therapy treatment.
[2019-09-27] MEDS: RIFAMPIN 300 MG CAPSULE PO SCH ×2 (11:50→21:32)
[2019-09-27 12:40] VITALS: BP_SYST 123
--- NOTE | 2019-09-27 13:04 | NUR ---
PHYSICAL THERAPY CO-SIGN The Physical Therapy Progress Notes documented by [facility] have been reviewed. Reviewed/Co-Signed by: Kd Denise PT Documentation Done by: VIV ALVARADO PTA Addendum: 09/27/19 at 1305 by Kd Denise PT Amended: Links added.
[2019-09-27 13:18] LABS: CREATININE 1.03 mg/dL (0.55-1.30)
[2019-09-27 13:23] LABS: ALBUMIN 1.6 g/dL (3.4-4.8); TOTAL BILIRUBIN 0.4 mg/dL (0.0-1.0)
[2019-09-27 13:40] LABS: POTASSIUM 2.3 mmol/L (3.5-5.1)
--- NOTE | 2019-09-27 13:44 | NUR ---
jessy level 2.[address] hidalgo awaiting to call back.
--- NOTE | 2019-09-27 13:46 | NUR ---
still in bed. stable.
--- NOTE | 2019-09-27 15:15 | NUR ---
DC PLANNING Received msg from [facility], that pt's called them & informed them Dr Lundberg was discharging pt to SNF & did not feel pt was ready. No dc order. I spoke w pt & @ bedside, informed no dc order. Per pt Md's were discussing possible dc. Explained Medicare IM Letter & singed, pt on isolation & states for to sign. Gave copy to pt.
--- NOTE | 2019-09-27 15:20 | NUR ---
PUT ANOTHER CALL TO DR LILLY FOR K LEVEL OF 2.3. SPOKE TO SOCO.
[2019-09-27] MEDS ORDERED: POTASSIUM CHLORIDE 20 MEQ TAB.PRT.SR PO ONE (15:30)
[2019-09-27] MEDS ORDERED: POTASSIUM CHLORIDE 60 MEQ in NS 500 ML IV ONE (15:30)
[2019-09-27 16:51] VITALS: BP_SYST 129
--- NOTE | 2019-09-27 17:12 | NUR ---
latest bs 114 mg/dl. no coverage given.
--- NOTE | 2019-09-27 17:20 | NUR ---
Nutrition F/U (short note d/t high patient load) RD reviewed pt's current EMR including diet Hx, physician notes, nursing notes, pertinent labs/meds/procedures, care trends, and care activity. Current Diet Order: [facility] [place] x6 days Per EMR, pt's PO intake records have consistently been fair; average of 66% x14 meals. Current diet remains adequate/appropriate. Pt remains at moderate nutritional risk; RD to F/U within 3-5 days.
--- NOTE | 2019-09-27 17:34 | NUR ---
ATTENDING MD DR LILLY WAS CALLED RE: PICC LINE CLOGGED. SPOKE TO PARI
--- NOTE | 2019-09-27 18:04 | NUR ---
DR AMATO CALLED BUT SERVICE SAID DR STOKES COVERING FOR HIM. FOR HEPARIN FLUSH FOR PICC LINE. AWAITING TO CALL BACK.
[2019-09-27] MEDS ORDERED: HEPARIN IV FLUSH 300 UNITS/3ML SYR INJ ONE (18:45)
--- NOTE | 2019-09-27 18:48 | NUR ---
AWAITING FOR PHARMACY TO PLACED THE ORDER FOR HEPARIN FLUSHED.
--- NOTE | 2019-09-27 19:25 | NUR ---
endorsed to incoming nurse Joanne CHAKRABORTY
--- NOTE | 2019-09-27 19:30 | NUR ---
PM ASSESSMENT REPORT RECEIVED FROM AM RN. PT RECEIVED IN BED WITH EYES OPEN, AAOX4, AND ABLE TO VERBALIZE NEEDS. FAMILY IS AT BEDSIDE. VSS, NO S/S OF ACUTE DISTRESS NOTED. PT ON 3L NC WITH NIGHTLY BIPAP. PT DENIES ANY PAIN OR DISCOMFORT AT THIS TIME. HOB ELEVATED, BED IN LOWEST POSITION, CALL LIGHT IN REACH. WILL CONTINUE TO MONITOR PT. Addendum: 09/28/19 at 0222 by Joanne Chamorro RN MATA PICC IN PLACE, BOTH PORTS ARE UNABLE TO FLUSH. ORDER RECEIVED TO FLUSH EACH PORT WITH HEPARIN FLUSH. WILL CARRY OUT ORDERED.
[2019-09-27 20:00] VITALS: BP_SYST 141
[2019-09-27] MEDS ORDERED: HEPARIN IV FLUSH 300 UNITS/3ML SYR ONE (22:08)
[2019-09-27 22:30] VITALS: BP_SYST 124
--- NOTE | 2019-09-27 22:50 | NUR ---
ENDORSEMENT BEDSIDE REPORT GIVEN TO HEIDY RN USING SBAR APPROACH TO ASSUME CARE.
--- NOTE | 2019-09-27 22:50 | NUR ---
Assumed nursing care of pt from nurse Taylor. Pt is fully awake, alert and oriented x4. Pt's daughter is at the bedside. Pt is currently on BIPAP with settings of 12/6. No respiratory distress noted. No c/o pain or discomfort at this time. MATA PICC noted with two ports. Each port was flushed with 10ml normal saline and due medications given and resumed. Skin is warm and dry to touch. No signs or symptoms of hypoglycemia or hyperglycemia noted. Call light is with pt and bed alarm is on.
[2019-09-27] MEDS: DAPTOmycin 450 MG in NS 50 ML IV SCH (23:21)
[2019-09-28] MEDS: IBUPROFEN 800 MG TABLET PO PRN ×4 (01:04→23:49)
--- NOTE | 2019-09-28 01:04 | NUR ---
Motrin 800mg was given po per pt's request for c/o right knee pain with relief. K Hiren is infusing well via MATA PICC. Fall and safety precautions are in place.
--- NOTE | 2019-09-28 03:00 | NUR ---
Pt is sleeping comfortably in bed. K Hiren is still infusing well via MATA PICC. Fall and safety precautions are in place.
--- NOTE | 2019-09-28 04:21 | NUR ---
K Hiren completely infused. Pt is resting comfortably in bed with her daughter at the bedside. No acute distress noted at this time. Fall and safety precautions are in place.
[2019-09-28 06:18] LABS: ALBUMIN 1.7 g/dL (3.4-4.8); CALCIUM 7.7 mg/dL (8.4-11.0); CREATININE 1.03 mg/dL (0.55-1.30); POTASSIUM 3.5 mmol/L (3.5-5.1); TOTAL BILIRUBIN 0.4 mg/dL (0.0-1.0)
[2019-09-28] MEDS: NORMAL SALINE 5 ML DISP.SYRIN IVF SCH ×3 (06:31→20:33)
[2019-09-28] MEDS: CEFEPIME 2 GM in D5W 100 ML IV SCH (06:35)
--- NOTE | 2019-09-28 06:50 | NUR ---
Pt is awake and resting quietly in bed. Pt is off BIPAP and no respiratory distress noted. Accucheck 103 this AM and no Insulin coverage needed. Skin remains warm and dry to touch. All pt's needs were attended to. Will endorse to day shift nurse.
--- NOTE | 2019-09-28 07:20 | NUR ---
received patient aaox 4. vitals signs stable. afebrile. lungs bilaterally diminished at the bases. abdomen soft and non distended. still has picc line dry /intact. patent. has bowen catheter draining clear yellow urine. bed low position, alarmed and locked call lights within reach. has oxygen on 3lnc. O2 Sat 97%. no sob noted. instructed to call for assistance.
[2019-09-28 08:18] VITALS: BP_SYST 132
--- NOTE | 2019-09-28 09:00 | NUR ---
due medication given via po with water one by one.
[2019-09-28] MEDS: FENOFIBRATE NANOCRYSTALLIZED 48 MG TABLET (TRICOR) PO SCH (09:02)
[2019-09-28] MEDS: FUROSEMIDE 40 MG/4 ML VIAL IVP SCH ×2 (09:02→20:25)
[2019-09-28] MEDS: COLCHICINE 0.6 MG TABLET PO SCH (09:02)
[2019-09-28] MEDS: amLODIPine BESYLATE 10 MG TABLET PO SCH (09:03)
[2019-09-28] MEDS: PANTOPRAZOLE SODIUM 40 MG TAB PO SCH (09:03)
[2019-09-28] MEDS: ALLOPURINOL 300 MG TABLET (ZYLOPRIM) PO SCH (09:04)
[2019-09-28] MEDS: RIFAMPIN 300 MG CAPSULE PO SCH ×2 (09:04→20:25)
[2019-09-28] MEDS: AMIODARONE HCL 200 MG TABLET PO SCH (09:04)
[2019-09-28] MEDS: ENOXAPARIN SODIUM 30 MG/0.3 ML SYRINGE SUBCUT SCH (09:19)
--- NOTE | 2019-09-28 12:00 | NUR ---
eating foods on the lunch tray while watching tv. no complained made so far.
[2019-09-28 12:20] VITALS: BP_SYST 105
--- NOTE | 2019-09-28 14:00 | NUR ---
resting at this time. watching tv.
[2019-09-28] MEDS: IPRATROPIUM/ALBUTEROL SULFATE 3 ML AMPUL.NEB (DUONEB) INH PRN (14:10)
--- NOTE | 2019-09-28 15:00 | NUR ---
turn to sides. made comfortable. will continue to monitor patients status.
--- NOTE | 2019-09-28 16:00 | NUR ---
dressing on the picc line changed with aseptic technique.
[2019-09-28 16:30] VITALS: BP_SYST 149
--- NOTE | 2019-09-28 17:09 | NUR ---
called dr hidalgo for both legs muscle spasm and pain. awaiting to call back
--- NOTE | 2019-09-28 17:28 | NUR ---
dr hidalgo called and informed that patient and family does not want to go to [facility] yet. and wants to stay more in the hospital due to insurance. (medicare)
--- NOTE | 2019-09-28 18:00 | NUR ---
latest bs 156 mg/dl. no coverage given. assists on adls.
--- NOTE | 2019-09-28 18:19 | NUR ---
no dressing done on to the sacral are due to muscle spasm on both legs, please follow up on the nite. dr hidalgo called but no order made.
--- NOTE | 2019-09-28 19:10 | NUR ---
OPENING NOTES PATIENT AWAKE, AOX4. FAMILY AT BEDSIDE. NO SIGNS OF RESPIRATORY DISTRESS NOTED. DENIES PAIN AND DISCOMFORT AT THIS TIME. PICC LINE DRESSING, CLEAN AND INTACT, FLUSHING WELL, PATENCY NOTED. NO REDNESS, NO SWELLING NOTED. BREATHING EVEN AND UNLABORED. HOB RAISED. ON 3L OF OXYGEN VIA NASAL CANULA. HEELS FLOATING, REPOSITIONED AT THIS TIME WITH HELP OF HER . CALL LIGHT WITHIN REACH, PATIENT EDUCATED TO USE CALL LIGHT WHEN ASSISTANCE IS NEEDED, PATIENT VERBALIZED UNDERSTANDING. BED LOCKED AND IN LOWEST POSITION. SAFETY PRECAUTIONS IN PLACE. BED ALARM ON. WILL CONTINUE TO MONITOR PATIENT.
[2019-09-28 20:00] VITALS: BP_SYST 140
[2019-09-28] MEDS: INSULIN REGULAR, HUMAN 100 UNITS/ML, 10 ML VIAL (humuLIN R) SUBCUT PRN (20:32)
--- NOTE | 2019-09-28 20:32 | NUR ---
MED PASS/ BS 179 DUE MEDICATION GIVEN AT THIS TIME. NO SIGNS OF RESPIRATORY DISTRESS AND DISCOMFORT NOTED. PATIENT EDUCATED THE PURPOSE, SIDE EFFECTS AND BENEFITS OF MEDICATIONS THAT HAS BEEN TAKEN, PATIENT VERBALIZED UNDERSTANDING. SAFETY PRECAUTIONS IN PLACE. CALL LIGHT WITHIN REACH. NEEDS ATTENDED AT THIS TIME. WILL CONTINUE TO MONITOR Addendum: 09/29/19 at 0136 by Stephani Lundberg RN BS 179, 2 UNITS OF REGULAR INSULIN GIVE FOR COVERAGE. PATIENT TOLERATED WELL.
--- NOTE | 2019-09-28 23:57 | NUR ---
PAIN PATIENT VERBALIZED 3/1- RIGHT KNEE PAIN. PRN PAIN MEDICATION GIVEN AT THIS TIME, PATIENT TOLERATED WELL. AT BEDSIDE. NO SIGNS OF RESPIRATORY DISTRESS NOTED. BREATHING EVEN AND UNLABORED. ON 3L OF OXYGEN VIA NASAL CANNULA, ATTACHED AND SECURED. CALL LIGHT WITHIN REACH. SAFETY PRECAUTIONS IN PLACE. WILL CONTINUE TO MONITOR.
[2019-09-29 00:08] VITALS: BP_SYST 139
--- NOTE | 2019-09-29 01:24 | NUR ---
WESLEY CARE/SKIN CARE PER CARE AND SKIN CARE DONE AT THIS TIME BY RN. PATIENT TOLERATED WELL. PATIENT VERBALIZED COMFORT. NO SIGNS OF RESPIRATORY DISTRESS AND DISCOMFORT NOTED. BREATHING EVEN AND UNLABORED. ON 3L OF OXYGEN VIA NASAL CANULA, ATTACHED AND SECURED. DARLING CATHETER DRAINING WELL. REPOSITIONED FOR COMFORT. CALL LIGHT WITH IN REACH. SAFETY PRECAUTIONS IN PLACE. WILL CONTINUE TO MONITOR.
--- NOTE | 2019-09-29 04:25 | NUR ---
RN ROUNDS PATIENT IS AWAKE, NO SIGNS OF RESPIRATORY DISTRESS NOTED. DENIES PAIN AT THIS TIME. REPOSITIONED FOR COMFORT. CALL LIGHT WITHIN REACH. DARLING CATHETER, ATTACHED AND SECURED, DRAINING BY GRAVITY. SAFETY PRECAUTIONS IN PLACE. WILL CONTINUE TO MONITOR PATIENT
[2019-09-29] MEDS: NORMAL SALINE 5 ML DISP.SYRIN IVF SCH ×3 (06:07→21:44)
[2019-09-29] MEDS: INSULIN REGULAR, HUMAN 100 UNITS/ML, 10 ML VIAL (humuLIN R) SUBCUT PRN ×2 (06:08→21:51)
--- NOTE | 2019-09-29 06:38 | NUR ---
CLOSING NOTES PATIENT AWAKE, WATCHING TV WITH AT THIS TIME. NO SIGNS OF RESPIRATORY DISTRESS NOTED. DENIES PAIN AND DISCOMFORT AT THIS TIME. BREATHING EVEN AND UNLABORED. ON 3L OF OXYGEN VIA NASAL CANNULA, ATTACHED AND SECURED. IV SITE, MATA PICC LINE PATENCY NOTED, NO SWELLING, NO INFILTRATION NOTED. HEELS FLOAT IN PILLOWS. DARLING CATHETER ATTACHED AND SECURED, DRAINING BY GRAVITY. CALL LIGHT WITH IN REACH. BED LOCKED AND IN LOWEST POSITION. BED ALARM ON. REPOSITIONED Q2H. SAFETY PRECAUTIONS IN PLACE. ALL NEEDS MET THROUGHOUT THE SHIFT. WILL CONTINUE TO MONITOR UNTIL ENDORSE TO ONCOMING SHIFT NURSE FOR CONTINUITY OF CARE.
[2019-09-29 06:42] LABS: HEMOGLOBIN 8.4 g/dL (12.0-16.0); MEAN CORPUSCULAR HEMOGLOBIN 30 pg (27-31); MEAN CORPUSCULAR HGB CONC 34 % (32-36); MEAN CORPUSCULAR VOLUME 89 fL (79.0-98.0); PLATELET COUNT (AUTO) 256 K/uL (130-430); RED BLOOD CELL COUNT(AUTO) 2.82 MIL/uL (4.2-6.2); RED CELL DISTRIBUTION WIDTH 15.8 % (9.0-15.0); WHITE BLOOD COUNT (AUTO) 12.5 K/uL (4.8-10.8)
--- NOTE | 2019-09-29 07:15 | NUR ---
received patient aaox 4. vitals signs stable. but weak as verbalized. afebrile. lungs bilaterally clear but diminished at the bases. abdomen soft and non distended. has iv access on the right upper picc line. 2 lumen noted. has bowen catheter in placed draining clear yellow urine. bed in low position, alarmed and locked. families at the bedside. has oxygen on 3 lnc. no sob nor pain noted. requesting to have motrin po at 830 am before going to the bedside commode. instructed patient/family to call for assistance.
[2019-09-29] MEDS ORDERED: MAGNESIUM OXIDE 400 MG TABLET PO ONE (08:00)
--- NOTE | 2019-09-29 08:15 | NUR ---
dr cedillo came and evaluate the patient for possible discharge home or to snf. but still on the process. needs a showcase trimmer from [facility] cattle care worker, informed Vu Charge nurse. and follow up at 0900am and Martha called from [facility].
--- NOTE | 2019-09-29 08:40 | NUR ---
due medication given with motrin tablet for pain.
[2019-09-29] MEDS: IBUPROFEN 800 MG TABLET PO PRN ×3 (08:45→23:43)
[2019-09-29] MEDS: ENOXAPARIN SODIUM 30 MG/0.3 ML SYRINGE SUBCUT SCH (08:48)
[2019-09-29] MEDS: FUROSEMIDE 40 MG/4 ML VIAL IVP SCH ×2 (08:49→21:43)
[2019-09-29] MEDS: amLODIPine BESYLATE 10 MG TABLET PO SCH (08:52)
[2019-09-29] MEDS: COLCHICINE 0.6 MG TABLET PO SCH (08:53)
[2019-09-29] MEDS: PANTOPRAZOLE SODIUM 40 MG TAB PO SCH (08:53)
[2019-09-29] MEDS: AMIODARONE HCL 200 MG TABLET PO SCH (08:53)
[2019-09-29] MEDS: FENOFIBRATE NANOCRYSTALLIZED 48 MG TABLET (TRICOR) PO SCH (08:53)
[2019-09-29] MEDS: RIFAMPIN 300 MG CAPSULE PO SCH ×2 (08:53→21:37)
[2019-09-29] MEDS: ALLOPURINOL 300 MG TABLET (ZYLOPRIM) PO SCH (08:53)
[2019-09-29 09:09] LABS: TOTAL IRON BIND. CAPACITY 152 ug/dL (250-450)
[2019-09-29] MEDS ORDERED: POTASSIUM CHLORIDE 20 MEQ TAB.PRT.SR PO ONE (09:45)
--- NOTE | 2019-09-29 10:00 | NUR ---
patient went to the chair with the help of public relations coordinator and family members as requested by the patient herself. sitting on the commode and had bowel movement. noted. and stayed till about 1540pm.
[2019-09-29] MEDS ORDERED: DOXYCYCLINE HYCLATE 100 MG CAPSULE PO ONE (10:30)
[2019-09-29 11:16] LABS: BAND % (MANUAL) 21 % (0-6); BASOPHILS % (MANUAL) 0 % (0-2); EOSINOPHILS % (MANUAL) 0 % (0-7); LYMPHOCYTES % (MANUAL) 9 % (20-46); MONOCYTES % (MANUAL) 6 % (0-11)
[2019-09-29 11:17] LABS: METAMYELOCYTES % 8 % (0-0); MYELOCYTES % 4 % (0-0)
[2019-09-29 12:00] VITALS: BP_SYST 136
--- NOTE | 2019-09-29 13:00 | NUR ---
bs 146 mg/dl. no coverage given. eating lunch. no pain noted. no sob noted.
[2019-09-29 13:10] VITALS: BP_SYST 157
[2019-09-29] MEDS ORDERED: MAGNESIUM SULFATE 3 GM in D5W 100 ML IV ONE (14:30)
--- NOTE | 2019-09-29 14:30 | NUR ---
dr quinonez came and ordered Magnesium sulfate iv x 1.
[2019-09-29 16:50] VITALS: BP_SYST 126
--- NOTE | 2019-09-29 17:00 | NUR ---
assists on adls. due medication given at this time.
--- NOTE | 2019-09-29 18:30 | NUR ---
dressing changes done at the sacral area cleanse normal saline and apply z guard on it. applied optifoam dressing on it.
--- NOTE | 2019-09-29 19:30 | NUR ---
OPENING NOTES PATIENT AWAKE, AOX4. FAMILY AT BEDSIDE. NO SIGNS OF RESPIRATORY DISTRESS NOTED. DENIES PAIN AND DISCOMFORT AT THIS TIME. PICC LINE DRESSING, CLEAN AND INTACT, FLUSHING WELL, PATENCY NOTED. NO REDNESS, NO SWELLING NOTED. BREATHING EVEN AND UNLABORED. HOB RAISED. ON 3L OF OXYGEN VIA NASAL CANULA, ATTACHED AND SECURED. HEELS FLOATING, REPOSITIONED AT THIS TIME WITH HELP OF HER . CALL LIGHT WITHIN REACH, PATIENT EDUCATED TO USE CALL LIGHT WHEN ASSISTANCE IS NEEDED, PATIENT VERBALIZED UNDERSTANDING. BED LOCKED AND IN LOWEST POSITION. SAFETY PRECAUTIONS IN PLACE. BED ALARM ON. WILL CONTINUE TO MONITOR PATIENT.
--- NOTE | 2019-09-29 19:30 | NUR ---
latest bs 132 mg/dl. no coverage given. eating dinner.
[2019-09-29 20:00] VITALS: BP_SYST 137
--- NOTE | 2019-09-29 20:22 | NUR ---
endorsed to incoming nurse Stephani CHAKRABORTY
[2019-09-29] MEDS: DOXYCYCLINE HYCLATE 100 MG CAPSULE PO SCH (21:37)
--- NOTE | 2019-09-29 21:43 | NUR ---
MED PASS DUE MEDICATION GIVEN AT THIS TIME. NO SIGNS OF RESPIRATORY DISTRESS AND DISCOMFORT NOTED. PATIENT EDUCATED THE PURPOSE, SIDE EFFECTS AND BENEFITS OF MEDICATIONS THAT HAS BEEN TAKEN, PATIENT VERBALIZED UNDERSTANDING. SAFETY PRECAUTIONS IN PLACE. CALL LIGHT WITHIN REACH. NEEDS ATTENDED AT THIS TIME. WILL CONTINUE TO MONITOR
--- NOTE | 2019-09-29 23:45 | NUR ---
RN ROUNDS PATIENT IS AWAKE, NO SIGNS OF RESPIRATORY DISTRESS NOTED. PRN PAIN MEDICATION GIVEN AT THIS TIME. REPOSITIONED FOR COMFORT. CALL LIGHT WITHIN REACH. DARLING CATHETER, ATTACHED AND SECURED, DRAINING BY GRAVITY. SAFETY PRECAUTIONS IN PLACE. WILL CONTINUE TO MONITOR PATIENT
--- NOTE | 2019-09-30 01:30 | NUR ---
RN ROUNDS PATIENT IS ASLEEP AT THIS TIME. NO SIGNS OF RESPIRATORY DISTRESS AND DISCOMFORT NOTED. HOB RAISED, ON 3L OF OXYGEN VIA NASAL CANULA, ATTACHED AND SECURED. CALL LIGHT WITHIN REACH. DARLING CATHETER, ATTACHED AND SECURED, DRAINING BY GRAVITY. SAFETY PRECAUTIONS IN PLACE. WILL CONTINUE TO MONITOR PATIENT
[2019-09-30 01:34] VITALS: BP_SYST 146
--- NOTE | 2019-09-30 04:50 | NUR ---
RN ROUNDS PATIENT IS ASLEEP AT THIS TIME. NO SIGNS OF RESPIRATORY DISTRESS AND DISCOMFORT NOTED. BREATHING EVEN AND UNLABORED. CALL LIGHT WITHIN REACH. DARLING CATHETER, ATTACHED AND SECURED, DRAINING BY GRAVITY. SAFETY PRECAUTIONS IN PLACE. WILL CONTINUE TO MONITOR PATIENT
[2019-09-30] MEDS: NORMAL SALINE 5 ML DISP.SYRIN IVF SCH ×2 (06:20→14:51)
--- NOTE | 2019-09-30 06:46 | NUR ---
CLOSING NOTES PATIENT AWAKE WITH AT BEDSIDE. NO SIGNS OF RESPIRATORY DISTRESS NOTED. DENIES PAIN AND DISCOMFORT AT THIS TIME. BREATHING EVEN AND UNLABORED. ON 3L OF OXYGEN VIA NASAL CANNULA, ATTACHED AND SECURED. IV SITE, MATA PICC LINE PATENCY NOTED, NO SWELLING, NO INFILTRATION NOTED. HEELS FLOAT IN PILLOWS. DARLING CATHETER ATTACHED AND SECURED, DRAINING BY GRAVITY. CALL LIGHT WITH IN REACH. BED LOCKED AND IN LOWEST POSITION. BED ALARM ON. REPOSITIONED Q2H. SAFETY PRECAUTIONS IN PLACE. ALL NEEDS MET THROUGHOUT THE SHIFT. WILL CONTINUE TO MONITOR UNTIL ENDORSE TO
[2019-09-30 06:59] LABS: BASOPHILS # (AUTO) 0.1 K/uL (0.0-0.2); BASOPHILS % (AUTO) 1.2 % (0.0-2.0); EOSINOPHILS % (AUTO) 0.1 % (0.0-4.0); HEMOGLOBIN 8.1 g/dL (12.0-16.0); LYMPHOCYTES # (AUTO) 1.2 K/uL (1.0-5.5); LYMPHOCYTES % (AUTO) 9.8 % (20.5-51.5); MEAN CORPUSCULAR HEMOGLOBIN 30 pg (27-31); MEAN CORPUSCULAR HGB CONC 34 % (32-36); MEAN CORPUSCULAR VOLUME 88 fL (79.0-98.0); MONOCYTES # (AUTO) 1.4 K/uL (0.0-1.0); MONOCYTES % (AUTO) 11.5 % (1.7-9.3); NEUTROPHILS # (AUTO) 9.6 K/uL (1.8-7.7); NEUTROPHILS % (AUTO) 77.4 % (40.0-70.0); PLATELET COUNT (AUTO) 207 K/uL (130-430); RED BLOOD CELL COUNT(AUTO) 2.73 MIL/uL (4.2-6.2); RED CELL DISTRIBUTION WIDTH 16.1 % (9.0-15.0); WHITE BLOOD COUNT (AUTO) 12.5 K/uL (4.8-10.8)
[2019-09-30 07:16] LABS: ALBUMIN 1.8 g/dL (3.4-4.8); CALCIUM 8.1 mg/dL (8.4-11.0); CREATININE 0.98 mg/dL (0.55-1.30); POTASSIUM 3.5 mmol/L (3.5-5.1); TOTAL BILIRUBIN 0.4 mg/dL (0.0-1.0)
[2019-09-30 08:00] VITALS: BP_SYST 134
--- NOTE | 2019-09-30 08:00 | NUR ---
RN OPENING NOTE PATIENT IS RESTING IN BED, ALERT ORIENTED X4, PATIENT DENIES PAIN OR DISCOMFORT. PATIENT WAS ASSESSED, VITAL SIGNS ARE STABLE. PATIENT'S BED AT LOW POSITION CALL LIGHT WITHIN REACH, WILL CONTINUE TO MONITOR.
[2019-09-30] MEDS: amLODIPine BESYLATE 10 MG TABLET PO SCH (09:29)
[2019-09-30] MEDS: FENOFIBRATE NANOCRYSTALLIZED 48 MG TABLET (TRICOR) PO SCH (09:30)
[2019-09-30] MEDS: FUROSEMIDE 40 MG/4 ML VIAL IVP SCH (09:30)
[2019-09-30] MEDS: PANTOPRAZOLE SODIUM 40 MG TAB PO SCH (09:31)
[2019-09-30] MEDS: RIFAMPIN 300 MG CAPSULE PO SCH ×2 (09:31→17:29)
[2019-09-30] MEDS: AMIODARONE HCL 200 MG TABLET PO SCH (09:32)
[2019-09-30] MEDS: COLCHICINE 0.6 MG TABLET PO SCH (09:33)
[2019-09-30] MEDS: DOXYCYCLINE HYCLATE 100 MG CAPSULE PO SCH ×2 (09:33→17:29)
[2019-09-30] MEDS: ALLOPURINOL 300 MG TABLET (ZYLOPRIM) PO SCH (09:33)
[2019-09-30] MEDS: ENOXAPARIN SODIUM 30 MG/0.3 ML SYRINGE SUBCUT SCH (09:44)
--- NOTE | 2019-09-30 10:00 | NUR ---
RN NOTE PATIENT WAS GIVEN HER MEDICATION, WAS EDUCATED ABOUT HER DISEASE PROCESS AND SIDE EFFECTS OF MEDICATIONS, BY BEDSIDE,
[2019-09-30] MEDS: IBUPROFEN 800 MG TABLET PO PRN (10:01)
[2019-09-30] MEDS ORDERED: ALBMDI INH (10:23)
[2019-09-30] MEDS ORDERED: MULT9LIQ2 PO (10:23)
[2019-09-30] MEDS ORDERED: DOXY100T2 PO (10:23)
[2019-09-30] MEDS ORDERED: LACT1CAP72 PO (10:23)
--- NOTE | 2019-09-30 12:00 | NUR ---
RN NOTE PATIENT IS RESTING IN BED, WAS SERVED HER LUNCH, HER BLOOD SUGAR WAS MEASURED TO BE 148MG/DL. PATIENT GOT NO COVERAGE. PATIENT WAS EDUCATED ABOUT FALL PREVENTION AND DM CONTROL
[2019-09-30 12:39] VITALS: BP_SYST 142
[2019-09-30 14:55] VITALS: BP_SYST 142
--- NOTE | 2019-09-30 15:50 | NUR ---
patient declined that we made an appointment for her, since she is a CHF patient, she said she will go to her doctor tomorrow 10/01/2019
--- NOTE | 2019-09-30 18:00 | NUR ---
HOME OFFICE CLAIMS EXAMINER NOTE PATIENT'S SACRAL SKIN TEAR WAS DRESSED UP, WITH OPTIFOAM AFTER CLEANING WITH NORMAL SALINE, PATIENT BLOOD SUGAR WAS MEASURED TO BE 106 MG/DL , PATIENT GOT NO COVERAGE. PATIENT WAS GIVEN HER ANTIBIOTICS NIGHT MEDICATIONS PER THE ORDER OF DR. BRITO, SINCE THE PATIENT'S PHARMACY IN [facility] IS CLOSED TODAY, PATIENT WILL CALL DR. BRITO TO CALL THE PHARMACY IN [facility] PER DR. BRITO TO GET HER PRESCRIPTION THERE. PATIENT PICC LINE WAS REMOVED 2 HOURS AGO, NO BLEEDING OR ECCHYMOSIS. PATIENT WAS ESCORTED TO THE PARKING LOT WITH THE HELP OF WILLIAM, AND HERE i SIGN OFF PATIENT'S CARE.
--- NOTE | 2019-10-03 12:12 | NUR ---
PHYSICAL THERAPY CO-SIGN The Physical Therapy Progress Notes documented by Early Intervention Specialist have been reviewed. Reviewed/Co-Signed by: Kd Denise PT Documentation Done by: VIV ALVARADO PTA Addendum: 10/03/19 at 1213 by Kd Denise PT Amended: Links added.
== END 2019-09-30 18:00 | disposition home or self-care (01) | DRG 871 ==
LOC: SED 20:42 → STU 09-21 01:17 → SMU 09-29 08:37
PROVIDERS: ADMIT Internal Medicine Hospice and Palliative Medicine; ATTEND Internal Medicine Hospice and Palliative Medicine
PROC: 30233N1 Transfusion of Nonautologous Red Blood Cells into Peripheral Vein, Percutaneous Approach (ICD-10-PCS; principal; 2019-09-23)
PROC: 5A09357 Assistance with Respiratory Ventilation, Less than 24 Consecutive Hours, Continuous Positive Airway Pressure (ICD-10-PCS; 2019-09-26)
PROC: 5A09357 Assistance with Respiratory Ventilation, Less than 24 Consecutive Hours, Continuous Positive Airway Pressure (ICD-10-PCS; 2019-09-27)
PROC: 5A09357 Assistance with Respiratory Ventilation, Less than 24 Consecutive Hours, Continuous Positive Airway Pressure (ICD-10-PCS; 2019-09-28)
DX: A41.02 Sepsis due to Methicillin resistant Staphylococcus aureus (principal); J96.20 Acute and chronic respiratory failure, unspecified whether with hypoxia or hypercapnia; J18.9 Pneumonia, unspecified organism; M00.061 Staphylococcal arthritis, right knee; J98.11 Atelectasis; G72.81 Critical illness myopathy; J44.0 Chronic obstructive pulmonary disease with (acute) lower respiratory infection; E87.1 Hypo-osmolality and hyponatremia; E87.6 Hypokalemia; G47.33 Obstructive sleep apnea (adult) (pediatric); E83.52 Hypercalcemia; I11.0 Hypertensive heart disease with heart failure; D70.9 Neutropenia, unspecified; R01.1 Cardiac murmur, unspecified; M10.9 Gout, unspecified; E11.65 Type 2 diabetes mellitus with hyperglycemia; Z96.652 Presence of left artificial knee joint; D63.8 Anemia in other chronic diseases classified elsewhere; Z87.01 Personal history of pneumonia (recurrent); Z86.14 Personal history of Methicillin resistant Staphylococcus aureus infection; Z79.4 Long term (current) use of insulin; Z78.9 Other specified health status
CPT/HCPCS: 36415; 71045; 71275; 73560-TC; 76604; 80048; 80053; 81000-TC; 82272; 82550-TC; 82607; 82728; 82746; 82962; 83540-TC; 83550-TC; 83735-TC; 83880; 84132-TC; 84484; 85007; 85025; 85027; 85379; 85610-TC; 85651-TC; 86140; 86886; 86900; 86901; 86920; 87040-TC; 87081; 87086; 93005; 93306; 93970; 94640; 94660; 94760; 97110-GP; 97112-GP; 97116-GP; 97530-GP; 99285; G0378; J0692; J0878; J1447; J1642; J1650; J1940; J2543; J3370; J3475; J3480; J7030; J7040; J7050; J7060; P9021; Q9967

== ENCOUNTER 2020-02-11 13:00 | Inpatient (IN) | payer BC, SELFPAY ==
[~2020-02-11] VITALS: Ht 160 cm; Wt 59.9 kg
[~2020-02-11 13:00] MED LIST changes: +ACET-2165 PO; +ALLO300T2 PO; +AMIO100T4 PO; +COLC0.6T67 PO; +DEXT50DI5 IV; +DOXY100T2 PO; +ENOX40DI8 SQ; +FENO67CA PO; +LACT1CAP72 PO; -LISI5TAB PO; -METF1000 PO; -METO50TA7 PO; -MONT10TA25 PO; +MULT9LIQ2 PO; +PRO40 PO; +RIFA300C2 PO; -SITA1TAB10 PO; +SSNOVOLOG SUBCUT; -TRIA1CAP53 PO
[2020-02-11 13:33] VITALS: BP_SYST 99
--- NOTE | 2020-02-11 13:45 | NUR ---
Patient triaged and placed in waiting room. VSS and patient appears in no acute distress at this time. Accompanied by , awaiting available bed, and MD notified of need for MSE.
[2020-02-11] MEDS ORDERED: SODIUM BICARBONATE 8.4% JECT 50 MEQ/50 ML SYRINGE IVP ONE (14:30)
[2020-02-11] MEDS ORDERED: CALCIUM GLUCONATE 1 GM in NS 100 ML IV ONE (14:30)
--- NOTE | 2020-02-11 14:37 | NUR ---
Patient moved to bed 1.
[2020-02-11 14:39] LABS: MONOCYTES # (AUTO) 0.8 K/uL (0.0-1.0)
--- NOTE | 2020-02-11 14:45 | NUR ---
Patient presented to ER C/O abnormal labs. Patient A&Ox4, BIB to ER, skin pale, pain 12/01, denies N/V/D. Patient sent by Dr. Corbin abnormal BUN, Potassium, and Hgb. Patient states she has weakness and right hip pain.
[2020-02-11 14:58] LABS: CALCIUM 10.1 mg/dL (8.4-11.0); CREATININE 3.1 mg/dL (0.55-1.30)
[2020-02-11 15:00] LABS: INR 1.2 (0.8-1.2); PROTHROMBIN TIME 11.7 SECS (9.5-12.5)
[2020-02-11 15:06] LABS: POTASSIUM 6.7 mmol/L (3.5-5.1)
[2020-02-11 15:07] LABS: TOTAL BILIRUBIN 0.6 mg/dL (0.0-1.0)
[2020-02-11 15:08] LABS: ALBUMIN 1.9 g/dL (3.4-4.8)
[2020-02-11 15:10] LABS: BASOPHILS # (AUTO) 0.1 K/uL (0.0-0.2); BASOPHILS % (AUTO) 0.4 % (0.0-2.0); EOSINOPHILS % (AUTO) 0.2 % (0.0-4.0); LYMPHOCYTES # (AUTO) 0.6 K/uL (1.0-5.5); LYMPHOCYTES % (AUTO) 3.2 % (20.5-51.5); MEAN CORPUSCULAR HEMOGLOBIN 27 pg (27-31); MEAN CORPUSCULAR HGB CONC 31 % (32-36); MEAN CORPUSCULAR VOLUME 87 fL (79.0-98.0); MONOCYTES % (AUTO) 4.1 % (1.7-9.3); NEUTROPHILS # (AUTO) 18.7 K/uL (1.8-7.7); RED BLOOD CELL COUNT(AUTO) 2.49 MIL/uL (4.2-6.2); RED CELL DISTRIBUTION WIDTH 18.6 % (9.0-15.0); WHITE BLOOD COUNT (AUTO) 20.3 K/uL (4.8-10.8)
[2020-02-11 15:11] LABS: HEMATOCRIT 21.6 % (36-48); HEMOGLOBIN 6.7 g/dL (12.0-16.0); PLATELET COUNT (AUTO) 835 K/uL (130-430)
[2020-02-11] MEDS ORDERED: CALCIUM GLUCONATE 1 GM/10 ML VIAL ONE (15:13)
[2020-02-11 15:14] LABS: NEUTROPHILS % (AUTO) 92.1 % (40.0-70.0)
[2020-02-11] MEDS ORDERED: SODIUM ZIRCONIUM CYCLOSILICATE 10 GM POWD.PACK PO ONE (15:45)
[2020-02-11] MEDS ORDERED: NACL 0.9% 1,000 ML IV ONE (15:45)
--- NOTE | 2020-02-11 16:10 | NUR ---
# 16 FR In and Out catheter with use of sterile technique. Immediate return of 100 ml yellow urine noted. Urine sample collected and sent to lab. Pt tolerated procedure well . Patient unable to toilet self. Pericare completed.
[2020-02-11 16:38] LABS: BILIRUBIN,URINE NEGATIVE (NEGATIVE); BLOOD, URINE NEGATIVE (NEGATIVE); CLARITY/URINE CLOUDY (CLEAR); GLUCOSE,URINE NEGATIVE (NEGATIVE); KETONES,URINE NEGATIVE (NEGATIVE); LEUKOCYTE ESTERASE ,URINE 2+ (NEGATIVE); NITRITE, URINE NEGATIVE (NEGATIVE); PROTEIN URINE NEGATIVE (NEGATIVE)
--- NOTE | 2020-02-11 16:55 | NUR ---
Patient repositioned in hospital bed.
[2020-02-11] MEDS ORDERED: INSULIN REGULAR, HUMAN 100 UNITS/ML, 10 ML VIAL (humuLIN R) SUBCUT PRN (17:00)
[2020-02-11] MEDS ORDERED: DEXTROSE 50% JECT 50 ML DISP.SYRIN IVP PRN (17:00)
[2020-02-11] MEDS ORDERED: PIPERACILLIN/TAZO 2.25G/DEX-IS 50 ML IV ONE (17:00)
[2020-02-11 17:07] LABS: COLOR,URINE YELLOW (YELLOW)
[2020-02-11] MEDS ORDERED: DICL50TA9 PO (17:14)
[2020-02-11 17:15] LABS: RBC,URINE NONE SEEN /HPF (0-3); WBC,URINE 50-80 /HPF (0-3)
[2020-02-11 17:16] LABS: BACTERIA,URINE MANY /HPF (None Seen); MUCUS,URINE None Seen /LPF (None Seen)
[2020-02-11] MEDS ORDERED: DICY10CA13 PO (17:20)
--- NOTE | 2020-02-11 17:25 | NUR ---
Medication reconciliation completed with information provided by Prince Servin, of patient. Any prior medication reconciliation on file was reviewed and corrected.
--- NOTE | 2020-02-11 17:32 | NUR ---
Patient given hospital dinner tray
--- NOTE | 2020-02-11 18:15 | NUR ---
OF PATIENT CALLED FOR UPDATE, VERIFIED WITH PATIENT OKAY TO GIVE INFORMATION TO MEY WESTBROOK.
[2020-02-11] MEDS: NACL 0.9% 1,000 ML IV SCH (19:08)
--- NOTE | 2020-02-11 19:21 | NUR ---
ENDORESED CARE TO ZENIA CHAKRABORTY
--- NOTE | 2020-02-11 19:22 | NUR ---
received report from MYLENE gutierrez for continuation of care.
--- NOTE | 2020-02-11 19:30 | NUR ---
pt laying in bed comfortably, denies pain. iv fluids running at prescribed rate. no signs of infiltration.
--- NOTE | 2020-02-11 20:05 | NUR ---
# 20 gauge angiocath placed to lac. Use of asceptic technique. Opsite placed over site. Blood return noted. Flushed with 10 cc of normal saline. No evidence of infiltration noted. Patient tolerated well.
--- NOTE | 2020-02-11 20:30 | NUR ---
Consent signed per PATIENT agreeing to administration of blood. Blood has been type and crossmatched. Blood sent from blood bank. Information on unit of blood checked against patient wristband at bedside by two nurses. All information matches. Patient or responsible republican informed of potential complications associated with blood transfusion. Informed of possible transfusion reaction symptoms. Aware of need to notify nurse at once of itching, shortness of breath, flushing, feeling of impending doom, or other symptoms not previously present. Vital signs taken within 5 minutes prior to initiation of transfusion. RN will remain with patient for first 15 minutes of transfusion at which time vital signs will be re-assessed.
--- NOTE | 2020-02-11 20:45 | NUR ---
pt vital signs stable. no signs of blood transfusion reaction.
--- NOTE | 2020-02-11 21:01 | NUR ---
Patient will be admitted to care of [facility]. Admitted to tele unit. Will go to room 110b. Belongings list completed. Complete and up to date summary report printed. SBAR report to be given at bedside with opportunity for questions.
--- NOTE | 2020-02-11 21:02 | NUR ---
spoke with Prince and updated him on status of pt per pt request.
--- NOTE | 2020-02-11 21:07 | NUR ---
Transfer to tele via ACLS protocol. Licensed nurse present. IV present no signs or symptoms of infiltration.
--- NOTE | 2020-02-11 21:18 | NUR ---
ADMIT NOTE Received pt from ER to the floor with a diagnosis of SEPSIS. Admission process initiated. patient oriented to pain management, safety and call light-teach back done.
--- NOTE | 2020-02-11 21:30 | NUR ---
INITIAL NOTES: PT IS AWAKE,ALERT ORIENTED X 4, CAME IN WITH ONGOING BLOOD TRANSFUSION FORM ER. NO SIGN OF INFUSION REACTION AT THIS TIME. STABLE VITAL SIGN ROOM AIR. SINUS ORESTES ON MONITOR. NO PAIN. NO SKIN BREAKDOWN, ORIENT TO ROOM, CALL LIGHT AND SAFETY. DISCUSS PLAN OF CARE. PT VERBALIZED UNDERSTANDING, NEEDS ATTENDED CALL LIGHT IN REACH, SIDE RAILS P.LOW BED POSITION AND ALARM. WILL MONITOR.
[2020-02-11 22:02] VITALS: BP_SYST 104
--- NOTE | 2020-02-11 22:30 | NUR ---
BLOOD TRANSFUSION DONE, NO INFUSION REACTION SEEN, VITAL SIGN STABLE..
[2020-02-11] MEDS ORDERED: PIPERACILLIN/TAZOBACTAM 2.25 GM VIAL IV ONE (22:40)
--- NOTE | 2020-02-11 23:00 | NUR ---
START NEW IV TO RIGHT FORE ARM GAUGE 20- GOOD BLOOD RETURN, DONE ASEPTICALLY, PT TOLERATE WELL.
--- NOTE | 2020-02-12 | NUR ---
PT IS SLEEPING, NO PAIN, NOT DISTRESS, IVF INFUSING WELL. BLOOD SUGAR 111, NEEDS ATTENDED. WILL MONITOR.
[2020-02-12] MEDS: PIPERACILLIN/TAZO 2.25G/DEX-IS 50 ML IV SCH ×5 (00:06→21:12)
[2020-02-12 00:29] VITALS: BP_SYST 94
--- NOTE | 2020-02-12 00:52 | NUR ---
CONSULT REASON FOR CONSULT: RENAL FAILURE PERSON I SPOKE WITH: MARIAM CONSULTING PHYSICIAN: DR. CORDOVA ARTIST SUSPECT PHONE NUMBER: [phone] ORDERING PHYSICIAN: DR. LILLY
--- NOTE | 2020-02-12 02:00 | NUR ---
sleeping, no pain, no sob, stable. ivf infusing well.
--- NOTE | 2020-02-12 04:12 | NUR ---
sleeping, comfortable, no pain, no sob, stable, ivf infusing well. safety in place.
--- NOTE | 2020-02-12 06:00 | NUR ---
pt is awake, alert. blood sugar 100, no pain. stable. needs attended. safety precaution in place. will monitor.
--- NOTE | 2020-02-12 07:00 | NUR ---
closing: pt is awake, alert. no pain, not distress, stable. ivf infusing well. needs attended the whole shift, will give sbar report to am rn.
[2020-02-12 08:00] VITALS: BP_SYST 88
[2020-02-12] MEDS: AMIODARONE HCL 200 MG TABLET PO SCH (08:00)
--- NOTE | 2020-02-12 08:11 | NUR ---
Initial notes: Patient is awake and alert, does not show any signs of distress, on RA. Both IV lines are patent, one is SL and the other running NS. She uses bedpan in bed. She is not in any signs of distress at this time. will see her today. I got a full report from the restaurant shift leader nurse. Bed is low, locked, 2 side rails up and [facility]. Corinne CHAKRABORTY
--- NOTE | 2020-02-12 10:11 | NUR ---
Patient is alert and awake and not showing any signs of distress, all needs were met.Bed is low, locked, 2 side rails up and call ligjt is within reach. Corinne CHAKRABORTY
[2020-02-12] MEDS: NACL 0.9% 1,000 ML IV SCH ×2 (10:23→16:47)
[2020-02-12 10:35] LABS: BASOPHILS # (AUTO) 0.1 K/uL (0.0-0.2); BASOPHILS % (AUTO) 0.6 % (0.0-2.0); EOSINOPHILS # (AUTO) 0.2 K/uL (0.0-0.4); EOSINOPHILS % (AUTO) 0.9 % (0.0-4.0); HEMATOCRIT 23.4 % (36-48); HEMOGLOBIN 7.5 g/dL (12.0-16.0); LYMPHOCYTES # (AUTO) 0.8 K/uL (1.0-5.5); LYMPHOCYTES % (AUTO) 4.5 % (20.5-51.5); MEAN CORPUSCULAR HEMOGLOBIN 27 pg (27-31); MEAN CORPUSCULAR HGB CONC 32 % (32-36); MEAN CORPUSCULAR VOLUME 85 fL (79.0-98.0); MONOCYTES # (AUTO) 1.1 K/uL (0.0-1.0); MONOCYTES % (AUTO) 6.4 % (1.7-9.3); NEUTROPHILS # (AUTO) 15.1 K/uL (1.8-7.7); NEUTROPHILS % (AUTO) 87.6 % (40.0-70.0); PLATELET COUNT (AUTO) 684 K/uL (130-430); RED BLOOD CELL COUNT(AUTO) 2.75 MIL/uL (4.2-6.2); RED CELL DISTRIBUTION WIDTH 17.8 % (9.0-15.0); WHITE BLOOD COUNT (AUTO) 17.2 K/uL (4.8-10.8)
[2020-02-12 10:43] LABS: ALBUMIN 1.8 g/dL (3.4-4.8); CREATININE 2.35 mg/dL (0.55-1.30); TOTAL BILIRUBIN 0.7 mg/dL (0.0-1.0)
[2020-02-12] MEDS ORDERED: SODIUM POLYSTYRENE SULFONATE 15 GM/60 ML UDBTL PO ONE (11:00)
--- NOTE | 2020-02-12 11:20 | NUR ---
Dietitian Recommendations *Recommend: [facility] [place] Renal Standard diet. *Consider adding Nepro BID. ONS will provide additional 850 kcal and 38 gm protein daily. *Encourage pt to increase PO intake. Please see Nutritional Assessment for details. JUMA, RD
[2020-02-12 11:31] VITALS: BP_SYST 105
--- NOTE | 2020-02-12 12:23 | NUR ---
Patient is alert and awake and not showing any signs of distress,she is eating her meal, all needs were met.Bed is low, locked, 2 side rails up and call ligjt is within reach. Corinne CHAKRABORTY
[2020-02-12] MEDS ORDERED: HYDROcodone/ACETAMIN 5-325 MG TAB (NORCO/ VICODIN) PO PRN (13:15)
--- NOTE | 2020-02-12 14:23 | NUR ---
Patient is alert and awake and not showing any signs of distress, all needs were met.Bed is low, locked, 2 side rails up and call light is within reach. Corinne CHAKRABORTY
[2020-02-12 15:44] VITALS: BP_SYST 100
--- NOTE | 2020-02-12 18:14 | NUR ---
IV fluids were replenished, patient was repositioned and cleaned. Patient is alert and awake and not showing any signs of distress, all needs were met.Bed is low, locked, 2 side rails up and call ligt is within reach. Corinne CHAKRABORTY
[2020-02-12 18:51] VITALS: BP_SYST 112
--- NOTE | 2020-02-12 19:25 | NUR ---
Initial notes: Patient is awake and alert, does not show any signs of distress, on RA. Both IV lines are patent, one is SL and the other running NS. She uses bedpan in bed. She is not in any signs of distress at this time. saw her today and rx some Kayexalate potassium levels, labs are scheduled for the am. I will give a fullreport to the restaurant shift supervisor nurse. Bed is low, locked, 2 side rails up and [facility]. Corinne CHAKRABORTY
--- NOTE | 2020-02-12 19:30 | NUR ---
Opening note Received patient awake, AOx4, resting in bed. No s/sx of distress and nonlabored breathing on room air. IVF infusing via IV to RAC and has 2nd IV site to RFA, which is SL. Presently she reports pain and requesting med. I informed her, I received info in report that MD was paged and awaiting for response. Bed is locked in lowest position, side rails up 3x, call light w/in reach. Updated board and reviewed plan of care.
[2020-02-12 20:00] VITALS: BP_SYST 112
--- NOTE | 2020-02-12 20:55 | NUR ---
Dr. Matias s/w Dr. Matias and informed patient is reporting moderate pain. I reported patient's allergies and informed her what she takes at home for pain: Patient reports she is on diclofenac 50mg and cyclobenzaprine 5mg. Dr. Matais provided order to continue meds and add pharmacy to review to ensure dose adequate for patient kidney function. Read back order.
[2020-02-12] MEDS: DICLOFENAC SODIUM 25 MG TABLET.DR PO SCH (21:47)
[2020-02-12] MEDS: CYCLOBENZAPRINE HCL 10 MG TABLET (FLEXERIL) PO SCH (21:48)
--- NOTE | 2020-02-12 21:48 | NUR ---
Meds Patient was administered two meds; diclofenac and cyclobenzaprine. Presently reports pain to lower back and legs is a 6/10 and is almost in tears. She said these meds control the pain and spasm. She requested the bed keenan for voiding and it was provided. Will continue to monitor.
--- NOTE | 2020-02-12 22:44 | NUR ---
comfortable Patient is awake, resting in bed. She reports pain decreased to 3/10 and is more comfortable. IVF infusing well and patient tolerating. Will continue to monitor.
--- NOTE | 2020-02-12 23:30 | NUR ---
bowel movement Patient requested bed keenan; she had a large bowel movement; dark, soft formed. Provided with tracey-care.
--- NOTE | 2020-02-13 00:09 | NUR ---
Converted to A-Fib / Dr. Matias S/W Dr. Matias and informed patient's rhythm converted from SR (HR 68) to A-fib, presently HR 120's. B/P 114/55. She provided orders for medication; Cardizem IVP 10mg one time, no further order for consult, will see how patient responds.
[2020-02-13] MEDS ORDERED: DILTIAZEM HCL 25 MG/5 ML VIAL IVP ONE (00:15)
--- NOTE | 2020-02-13 00:23 | NUR ---
Cardizem IVP Cardizem IVP given as ordered, explained procedure, side effects and patient verbalized understanding. Tolerating. Presently patient asymptomatic.
--- NOTE | 2020-02-13 00:31 | NUR ---
Fingerstick glucose Accu-check done and obtained result of 118mg/dL; no coverage due.
--- NOTE | 2020-02-13 00:41 | NUR ---
Rounds Presently HR 90's 94-99 on telemonitor. Patient is resting w/ eyes closed, no sign of distress, call light w/in reach.
[2020-02-13 01:26] VITALS: BP_SYST 102
[2020-02-13] MEDS: NACL 0.9% 1,000 ML IV SCH ×4 (02:07→17:53)
[2020-02-13] MEDS: PIPERACILLIN/TAZO 2.25G/DEX-IS 50 ML IV SCH ×4 (02:08→17:53)
--- NOTE | 2020-02-13 02:08 | NUR ---
IVF / Antibiotic Hung new bag of NS and infusing as ordered at 150 ml/hr. Due antibiotic administered, she is tolerating, reviewed side effects and she verbalized understanding. She was assisted with reposition. No further needs, safety precautions in place and call light w/in reach.
[2020-02-13 04:22] VITALS: BP_SYST 114
--- NOTE | 2020-02-13 04:23 | NUR ---
V/S, Bedpan Patient awake called for bedpan; voided and tracey-care provided. V/S taken and B/P 114/51 HR 107. No SOB, no pain. Assisted w/reposition. IVF infusing well. Call light w/in reach.
--- NOTE | 2020-02-13 06:57 | NUR ---
Nutrition Update Noel Scale 16 noted. Pt admitted for Sepsis Diet: Regular BMI: 23.4 kg/m2 RD to follow per nutrition care standards.
--- NOTE | 2020-02-13 07:00 | NUR ---
CLOSING NOTE Patient awake, AOx4, resting in bed in comfortable position. No s/sx of distress and nonlabored breathing on room air. IVF infusing via IV to RFA and has 2nd IV site to LAC, which is SL. Fingerstick BG test done w/ result of 108mg/dL. Provided bed keenan for void. Safety precautions maintained and call light w/in reach. Needs met throughout shift, will endorse to day shift nurse.
[2020-02-13 07:05] LABS: BASOPHILS # (AUTO) 0.2 K/uL (0.0-0.2); BASOPHILS % (AUTO) 1.2 % (0.0-2.0); EOSINOPHILS # (AUTO) 0.2 K/uL (0.0-0.4); EOSINOPHILS % (AUTO) 1.1 % (0.0-4.0); HEMATOCRIT 22.4 % (36-48); HEMOGLOBIN 7.2 g/dL (12.0-16.0); LYMPHOCYTES # (AUTO) 1.1 K/uL (1.0-5.5); LYMPHOCYTES % (AUTO) 8.2 % (20.5-51.5); MEAN CORPUSCULAR HEMOGLOBIN 28 pg (27-31); MEAN CORPUSCULAR HGB CONC 32 % (32-36); MEAN CORPUSCULAR VOLUME 86 fL (79.0-98.0); MONOCYTES # (AUTO) 1.1 K/uL (0.0-1.0); MONOCYTES % (AUTO) 8.2 % (1.7-9.3); NEUTROPHILS # (AUTO) 10.8 K/uL (1.8-7.7); NEUTROPHILS % (AUTO) 81.3 % (40.0-70.0); PLATELET COUNT (AUTO) 628 K/uL (130-430); RED CELL DISTRIBUTION WIDTH 17.9 % (9.0-15.0); WHITE BLOOD COUNT (AUTO) 13.3 K/uL (4.8-10.8)
[2020-02-13 07:22] LABS: ALBUMIN 1.7 g/dL (3.4-4.8); CALCIUM 9.4 mg/dL (8.4-11.0); CREATININE 1.66 mg/dL (0.55-1.30); POTASSIUM 4.8 mmol/L (3.5-5.1); TOTAL BILIRUBIN 0.6 mg/dL (0.0-1.0)
--- NOTE | 2020-02-13 07:24 | NUR ---
Opening Note received bedside SBAR report from provider relations consultant RN, patient resting in bed, respirations even and unlabored on room air, patient reports pain is controlled at this time, no acute distress noted, educated patient on use of call light and asked to call for assistance, patient verbalized understanding, call light in reach, bed in low and locked position, bed alarm on.
[2020-02-13 08:00] VITALS: BP_SYST 102
[2020-02-13] MEDS: CYCLOBENZAPRINE HCL 10 MG TABLET (FLEXERIL) PO SCH ×3 (08:13→20:25)
[2020-02-13] MEDS: DICLOFENAC SODIUM 25 MG TABLET.DR PO SCH ×2 (08:13→20:28)
[2020-02-13] MEDS: AMIODARONE HCL 200 MG TABLET PO SCH ×2 (08:14→20:27)
--- NOTE | 2020-02-13 10:08 | NUR ---
Physician Rounds Dr. Lundberg at bedside examining patient, informed him that per shift supervisor film processing RN patient converted from normal sinus rhythm to a-fib, orders for cardiac consultation received, verified with read back. Addendum: 02/13/20 at 1054 by Juanis Dalal RN informed Dr. Lundberg that patient does not have DVT prophylaxis, new orders received, verified with read back.
--- NOTE | 2020-02-13 10:12 | NUR ---
CONSULTATION PAGED/CALLED Reason for Consultation: [] AFIB Person Who was Notified: [] DR RICH ( SHAINA CLEMENT PERSONALLY INFORMED MD) Consulting Physician: [] DR RICH Maintenance Of Way Superintendent Specialty: [] CARDIOLOGY Ordering Physician: [] DR LILLY
[2020-02-13] MEDS ORDERED: AMIODARONE HCL 200 MG TABLET PO ONE (10:30)
--- NOTE | 2020-02-13 11:20 | NUR ---
CONSULTATION PAGED/CALLED Reason for Consultation: [] SEPSIS Person Who was Notified: [] DR LAZARO Consulting Physician: [] DR LAZARO Compacting Machine Operator/Tender Specialty: [] ID Ordering Physician: [] DR LILLY
--- NOTE | 2020-02-13 11:22 | NUR ---
CONSULTATION PAGED/CALLED Reason for Consultation: [] R/O GI BLEED Person Who was Notified: [] CHRIS Consulting Physician: [] DR BEASLEY Replanting Machine Crewman Specialty: [] GI Ordering Physician: [] DR LILLY
[2020-02-13 11:31] LABS: TOTAL IRON BIND. CAPACITY 142 ug/dL (250-450)
--- NOTE | 2020-02-13 12:18 | NUR ---
RN Rounds patient sitting up in bed eating lunch, tolerating well, patient denies any nausea, patient reports pain is controlled, no acute distress noted.
[2020-02-13 12:32] VITALS: BP_SYST 105
--- NOTE | 2020-02-13 12:48 | NUR ---
Spoke with Pharmacist spoke with pharmacist Sumanth, informed him that patient states that if she takes norco she becomes short of breath, per Sumanth he is going to d/c the norco order, patient reports pain is controlled at this time, patient resting in bed.
--- NOTE | 2020-02-13 13:20 | NUR ---
Physician Rounds Dr. Campbell at bedside examining patient.
--- NOTE | 2020-02-13 13:23 | NUR ---
Physician Rounds Dr. Walker at bedside examining patient.
--- NOTE | 2020-02-13 15:18 | NUR ---
ATTENDING MD DR LILLY WAS CALLED, RE: CLARIFY COVID ORDER. SPOKE TO
--- NOTE | 2020-02-13 15:19 | NUR ---
ROBIN XIONG WAS CALLED AGAIN, RE: CLEARANCE FOR DC TO SNF. SPOKE TO THE OFFICE SEC.
--- NOTE | 2020-02-13 15:50 | NUR ---
RN Rounds patient sleeping in bed, respirations even and unlabored, no acute distress noted.
[2020-02-13 16:39] VITALS: BP_SYST 109
--- NOTE | 2020-02-13 16:45 | NUR ---
Education educated patient on use and purpose of SCDs, patient verbalized understanding, patient refusing to wear SCDs at this time, patient resting in bed, patient requesting to have a snack of fruit, called dietary to request snack for patient.
--- NOTE | 2020-02-13 18:32 | NUR ---
Physician Rounds Dr. Larson at bedside examining patient.
--- NOTE | 2020-02-13 19:23 | NUR ---
Closing Note bedside SBAR report given to receiving RN, patient resting in bed, respirations even and unlabored on room air, no acute distress noted, educated patient on use of call light and asked to call for assistance, patient verbalized understanding, call light in reach, bed in low and locked position, bed alarm on, care endorsed to Kaycee RN.
--- NOTE | 2020-02-13 19:30 | NUR ---
Opening Note received bedside SBAR report from day shift RN, patient resting in bed, respirations even and unlabored on room air, patient reports pain is controlled at this time, no acute distress noted, educated patient on use of call light and asked to call for assistance, patient verbalized understanding, call light in reach, bed in low and locked position, bed alarm on. Will continue to monitor.
--- NOTE | 2020-02-13 22:30 | NUR ---
BT INITIATION: Consent signed agreeing to administration of blood. Blood has been type and crossmatched. Blood sent from blood bank. Information on unit of blood checked against patient wristband at bedside by two nurses. All information matches. Patient or responsible alliance party informed of potential complications associated with blood transfusion. Informed of possible transfusion reaction symptoms. Aware of need to notify nurse at once of itching, shortness of breath, flushing, feeling of impending doom, or other symptoms not previously present. Vital signs taken within 5 minutes prior to initiation of transfusion. RN will remain with patient for first 15 minutes of transfusion at which time vital signs will be re-assessed.
[2020-02-14] VITALS: BP_SYST 114
--- NOTE | 2020-02-14 | NUR ---
NPO for EGD today. NPO cone at bedside.
[2020-02-14] MEDS: PIPERACILLIN/TAZO 2.25G/DEX-IS 50 ML IV SCH ×3 (01:55→12:12)
[2020-02-14 02:29] LABS: BASOPHILS # (AUTO) 0.2 K/uL (0.0-0.2); HEMOGLOBIN 7.6 g/dL (12.0-16.0); LYMPHOCYTES # (AUTO) 1.2 K/uL (1.0-5.5)
[2020-02-14 02:33] LABS: BASOPHILS % (AUTO) 1.3 % (0.0-2.0); EOSINOPHILS # (AUTO) 0.2 K/uL (0.0-0.4); EOSINOPHILS % (AUTO) 2.1 % (0.0-4.0); HEMATOCRIT 23.5 % (36-48); LYMPHOCYTES % (AUTO) 10.6 % (20.5-51.5); MEAN CORPUSCULAR HEMOGLOBIN 28 pg (27-31); MEAN CORPUSCULAR HGB CONC 33 % (32-36); MEAN CORPUSCULAR VOLUME 86 fL (79.0-98.0); MONOCYTES # (AUTO) 1.2 K/uL (0.0-1.0); MONOCYTES % (AUTO) 9.9 % (1.7-9.3); NEUTROPHILS # (AUTO) 8.9 K/uL (1.8-7.7); NEUTROPHILS % (AUTO) 76.1 % (40.0-70.0); PLATELET COUNT (AUTO) 561 K/uL (130-430); RED BLOOD CELL COUNT(AUTO) 2.73 MIL/uL (4.2-6.2); RED CELL DISTRIBUTION WIDTH 16.9 % (9.0-15.0); WHITE BLOOD COUNT (AUTO) 11.7 K/uL (4.8-10.8)
[2020-02-14 02:43] LABS: INR 1.2 (0.8-1.2); PROTHROMBIN TIME 12.2 SECS (9.5-12.5)
--- NOTE | 2020-02-14 03:10 | NUR ---
CALLED BACK : DR WU CALLED BACK , PRIMARY RN IS ON BREAK ; TALKED WITH MD NOTIFIED MD PTS FIBRINOGEN LEVEL AND H/H . NO ORDER RECEIVED ; ALSO NOTIFIED MD THAT PT HAS AN ORDER FOR EGD IN AM PT IS DIABETIC AND BS AT MIDNIGHT WAS ONLY 84 , MD ORDERED TO CHANGE IV FLUID TO D51/2 NS AT 75 ML /HR , NOTIFIED MD THAT PT IS RECEIVING NS AT 150 ML /HR . MD STATED 75 ML IS GOOD .
[2020-02-14] MEDS: D5/0.45 NS 1,000 ML IV SCH ×2 (04:05→21:15)
--- NOTE | 2020-02-14 07:04 | NUR ---
GI LAB Pt taken to GI lab via wheelchair for EGD.
[2020-02-14] MEDS ORDERED: SIMETHICONE 40 MG/0.6 ML ML ONE (07:05)
[2020-02-14] MEDS ORDERED: MIDAZOLAM HCL 5 MG/5 ML VIAL ONE (07:06)
[2020-02-14] MEDS ORDERED: fentaNYL CITRATE/PF 100 MCG/2 ML AMP ONE (07:06)
--- NOTE | 2020-02-14 07:30 | NUR ---
AM ROUNDS: PATIENT NOT IN THE ROOM.PATIENT AT GI LAB FOR EGD.
[2020-02-14 08:06] LABS: FOLATE (FOLIC ACID) 10.1 ng/mL (>3.0)
[2020-02-14 08:55] VITALS: BP_SYST 117
--- NOTE | 2020-02-14 09:00 | NUR ---
BACK FROM GI LAB: PATIENT IN THE ROOM,BACK FROM GI LAB. REPORT GIVEN BY AUGUSTINE.ROUTINE VITAL SIGNS TAKEN,AFEBRILE. STARTED ON FULL LIQUID DIET ORDERED. TOLERATED WELL,NO NAUSEA/VOMITING NOTED.
[2020-02-14] MEDS: CYCLOBENZAPRINE HCL 10 MG TABLET (FLEXERIL) PO SCH ×3 (09:14→21:10)
[2020-02-14] MEDS: PANTOPRAZOLE SODIUM 40 MG/VIAL (PROTONIX) IVP SCH ×2 (09:17→21:14)
[2020-02-14] MEDS: AMIODARONE HCL 200 MG TABLET PO SCH ×2 (09:17→21:14)
--- NOTE | 2020-02-14 10:58 | NUR ---
CONSULTATION: REASON FOR CONSULT: KNEE PAIN HX PF SEPTIC ARTHRITIS CONSULTING PHYSICIAN: DEXTER XIONG MD ORDERED BY: VIJAYA MOREIRA MD SPOKE WITH KRISTI [phone]
[2020-02-14 11:48] VITALS: BP_SYST 122
--- NOTE | 2020-02-14 13:00 | NUR ---
CARE NOTES: PUT PATIENT ON THE BED OVALLE.VOIDED. CARE RENDERED.
[2020-02-14 15:41] VITALS: BP_SYST 111
--- NOTE | 2020-02-14 16:20 | NUR ---
RN ROUNDS: STABLE. NO DISTRESS.
--- NOTE | 2020-02-14 16:51 | NUR ---
ID MD DR LAZARO WAS CALLED, RE: MICRO RESULTS - MRSA AND + BLOOD CULTURE. SPOKE TO BEVERLY.
--- NOTE | 2020-02-14 17:00 | NUR ---
ID ORDER: SPOKE WITH DR LAZARO AND RELAYED BLOOD CULTURE STAPH AUREUS POSITIVE,WITH ORDERS PUT PATIENT ON CONTACT ISOLATION,DC ZOSYN,START ON IV VANCOMYCIN PER PHARMACY DOSE AND AUGMENTIN 500 PO BID.
[2020-02-14] MEDS ORDERED: VANCOMYCIN HCL 1,000 MG in NS 250 ML IV ONE (18:00)
[2020-02-14] MEDS ORDERED: AMOXICILLIN/CLAVULANATE POTASSIUM 500 MG TABLET PO ONE (18:00)
--- NOTE | 2020-02-14 18:35 | NUR ---
END OF SHIFT: PATIENT RESTING. IV ANTIBIOTICS ON GOING. CALL LIGHT WITH IN REACH. BED LOCKED AT LOWEST POSITION.PRACTICE GUIDELINE MET THROUGHOUT SHIFT.
[2020-02-14 20:00] VITALS: BP_SYST 127
--- NOTE | 2020-02-14 20:00 | NUR ---
INITIAL NOTE AT INITIAL ASSESSMENT, PATIENT IS RESTING IN BED, STABLE, NO SIGNS OF RESPIRATORY DISTRESS. PLAN OF CARE FOR THE EVENING IS COMMUNICATED WITH THE PATIENT. SHE IS ANXIOUS TO GO HOME TO HER FAMILY. PATIENT DEMONSTRATES CORRECT USAGE OF CALL LIGHT USAGE AT THIS TIME. FALL, SAFETY, RESPIRATORY, AND ASPIRATION PRECAUTIONS WILL BE TAKEN THROUGHOUT THE SHIFT. BED IS LOCKED, ALARMED, AND AT THE LOWEST LEVEL.
--- NOTE | 2020-02-14 22:00 | NUR ---
HYGIENE CARE HYGIENE CARE IS PROVIDED AT THIS TIME, PATIENT TOLERATED WELL. SHE IS REPOSITIONED FOR COMFORT. BED IS LOCKED, ALARMED, AND AT THE LOWEST LEVEL.
--- NOTE | 2020-02-15 | NUR ---
NOTE PATIENT IS RESTING IN BED, STABLE, NO SIGNS OF RESPIRATORY DISTRESS. CALL LIGHT IS WITHIN REACH. BED IS LOCKED, ALARMED, AND AT THE LOWEST LEVEL.
[2020-02-15 01:03] VITALS: BP_SYST 136
--- NOTE | 2020-02-15 01:15 | NUR ---
NOTE PATIENT IS RESTING IN BED, STABLE, NO SIGNS OF RESPIRATORY DISTRESS. CALL LIGHT IS WITHIN REACH. BED IS LOCKED, ALARMED, AND AT THE LOWEST LEVEL.
--- NOTE | 2020-02-15 02:30 | NUR ---
HYGIENE CARE HYGIENE CARE IS PROVIDED AT THIS TIME, PATIENT TOLERATED WELL. SHE IS REPOSITIONED FOR COMFORT. BED IS LOCKED, ALARMED, AND AT THE LOWEST LEVEL.
[2020-02-15] MEDS ORDERED: LORazepam 2 MG/ML VIAL IVP ONE (04:30)
--- NOTE | 2020-02-15 04:30 | NUR ---
COMMUNICATION W/ DR. VERMA PATIENT IS HAVING AN ANXIETY ATTACK, DR. VERMA HAS BEEN MADE AWARE, ORDERS GIVEN, READ BACK, AND VERIFIED. PATIENT'S VITALS ARE CURRENTLY WNL AND STABLE. SHE IS REPOSITIONED FOR COMFORT.
[2020-02-15] MEDS: D5/0.45 NS 1,000 ML IV SCH (05:06)
--- NOTE | 2020-02-15 06:30 | NUR ---
CLOSING NOTE PATIENT WAS ANXIOUS THROUGHOUT THE NIGHT, ATIVAN GIVEN IN AM WAS EFFECTIVE. AT THIS TIME, SHE IS STABLE, NO SIGNS OF RESPIRATORY DISTRESS. BED IS LOCKED, ALARMED, AND AT THE LOWEST LEVEL. FALL, SAFETY, RESPIRATORY, AND ASPIRATION PRECAUTIONS HAVE BEEN TAKEN THROUGHOUT THE SHIFT. WILL CONTINUE TO MONITOR UNTIL SBAR REPORT IS GIVEN AT BEDSIDE TO AM NURSE.
[2020-02-15 08:00] VITALS: BP_SYST 130
--- NOTE | 2020-02-15 08:00 | NUR ---
awake,alert,afebrile,vss,requests oatmeal, here and notified,advanced to soft diet and call dietary to deliver oatmeal,needs attended,call light & personal items within pt reach safety maintained.continue to monitor pt.
[2020-02-15 08:23] LABS: BASOPHILS # (AUTO) 0.1 K/uL (0.0-0.2); BASOPHILS % (AUTO) 0.9 % (0.0-2.0); EOSINOPHILS # (AUTO) 0.2 K/uL (0.0-0.4); EOSINOPHILS % (AUTO) 1.8 % (0.0-4.0); HEMATOCRIT 30.8 % (36-48); HEMOGLOBIN 9.9 g/dL (12.0-16.0); LYMPHOCYTES # (AUTO) 1.5 K/uL (1.0-5.5); LYMPHOCYTES % (AUTO) 11.1 % (20.5-51.5); MEAN CORPUSCULAR HEMOGLOBIN 28 pg (27-31); MEAN CORPUSCULAR HGB CONC 32 % (32-36); MEAN CORPUSCULAR VOLUME 87 fL (79.0-98.0); MONOCYTES % (AUTO) 7.4 % (1.7-9.3); NEUTROPHILS # (AUTO) 10.4 K/uL (1.8-7.7); NEUTROPHILS % (AUTO) 78.8 % (40.0-70.0); PLATELET COUNT (AUTO) 548 K/uL (130-430); RED BLOOD CELL COUNT(AUTO) 3.55 MIL/uL (4.2-6.2); RED CELL DISTRIBUTION WIDTH 17.5 % (9.0-15.0); WHITE BLOOD COUNT (AUTO) 13.2 K/uL (4.8-10.8)
[2020-02-15 08:42] LABS: ALBUMIN 1.7 g/dL (3.4-4.8); CALCIUM 9.2 mg/dL (8.4-11.0); CREATININE 1.18 mg/dL (0.55-1.30); POTASSIUM 3.7 mmol/L (3.5-5.1); TOTAL BILIRUBIN 0.7 mg/dL (0.0-1.0); VANCOMYCIN,RANDOM 10.6 ug/mL
[2020-02-15] MEDS: PANTOPRAZOLE SODIUM 40 MG/VIAL (PROTONIX) IVP SCH ×2 (09:13→20:38)
[2020-02-15] MEDS: AMIODARONE HCL 200 MG TABLET PO SCH ×2 (09:13→20:40)
[2020-02-15] MEDS: CYCLOBENZAPRINE HCL 10 MG TABLET (FLEXERIL) PO SCH ×4 (09:13→20:39)
--- NOTE | 2020-02-15 10:00 | NUR ---
assisted pt using bedpan for urination,and given pt diaper upon request,hourly rounds made,safety maintained.
[2020-02-15] MEDS: AMOXICILLIN/CLAVULANATE POTASSIUM 500 MG TABLET PO SCH ×2 (10:54→14:56)
[2020-02-15] MEDS: traMADol HCL HCL 50 MG TABLET (ULTRAM) PO ONE ×2 (10:55→11:10)
--- NOTE | 2020-02-15 11:23 | NUR ---
Nutrition F/U Admitting Diagnosis Sepsis Reviewed Pertinent Medical/Surgical Hx Medical Record Patient Medical History Comment: Anemia, Hyperkalemia, Metabolic Acidosis, Renal Failure per ER MD documentation. COVID-19 Negative x 2 02/11, 02/12 PMH: DM, HTN, Hyperlipidemia. Subjective Information Pt s/p upper endoscopy on 02/13 and MD reported pt having a large duodenal ulcer, gastritis and superficial erosions, esophagitis, and hiatal hernia. Pt's diet order has slowly advanced to GI soft (low fiber/bland) diet per MD. Per intake records, pt has poor PO intake w/ avg of 43% x last [address] was unable to reach pt's primary RN but was able to speak w/ RN station. RD suggested on recommending Nepro BID as ONS to optimize pt's PO intake. RN station acknowledged and stated will talk to primary RN. Pt is not yet meeting her nutritional needs w/ current PO intake. Recommend continue GI soft (low fiber/bland) diet per MD. Recommend provide Nepro BID to provide additional 850 kcal and 38 g protein to optimize PO intake. Current Diet Order/Nutrition Support GI Soft (low fiber/bland) x 0 days Pertinent Medications Amiodarone, SSI Pertinent Labs 02/14 Na 134L, K 3.7WNL, BG 119H (trending down), BUN 20WNL, CRE 1.18WNL, H/H 9.9L/30.8L (improved), WBC 13.2 H (improved) Recent Weight Change Yes - 8# weight loss in 1 month per pt, reported UBW: 140#; no new wt changes since last RD visit Last BM Feb 12, 2020 Skin Integrity Comment: Noel scale: 20. No PI, no edema noted. Current % PO Poor: 43% x last 9 meals Estimated Energy Expenditure (kcals/day) 5814-6590 kcal/day (30-35 kcal/kg CBW for sepsis) Estimated Protein Required (g/day) 60gm/day (1gm/kg CBW for Renal Dz predialysis) Estimated Fluid Required (l/day) per MD (Renal Dz.) Problem/Etiology/Signs/Symptoms Altered nutrition-related labs r/t endocrine and renal dysfunction AEB elevated BG, POC BG, BUN and CRE lab values. *improving Increased risk for malnutrition r/t chronic illness AEB unintentional weight loss and poor PO intake for more than 1 week. *ongoing Expected Outcomes/Goals Monitor appetite and PO intake w/ goal of pt meeting at least 75% of estimated nutritional needs, labs trending WNL, normal GI function, skin integrity/wt maintenance. Dietitian Recommendations *Recommend continue GI soft (low fiber/bland) diet per MD *Recommend Nepro BID. ONS will provide additional 850 kcal and 38 gm protein daily. *Encourage pt to increase PO intake. * Slowly advance diet as tolerated per MD. Follow Up High Risk: F/U in 2-3days
--- NOTE | 2020-02-15 11:36 | NUR ---
Dietitian Recommendations *Recommend continue GI soft (low fiber/bland) diet per MD *Recommend Nepro BID. ONS will provide additional 850 kcal and 38 gm protein daily. *Encourage pt to increase PO intake. * Slowly advance diet as tolerated per MD. Please see Nutrition F/U for details. MARIALUISA LENNON
--- NOTE | 2020-02-15 12:00 | NUR ---
pt c/o pain in the knee,offered ultram po as per order.but pt said she has alter mental status allergy reaction for ultram notified and awared,pt explained to stay hospital d/t sepsis,blood sugar 103mg/dl,no coverage needed per sliding scale order.continue to monitor pt.
[2020-02-15 12:14] VITALS: BP_SYST 131
--- NOTE | 2020-02-15 15:09 | NUR ---
pt crying and asking to put her clothes on and calling her to pick her up,refused taking meds,spoke to patient kelly and explained pt needs to stay hospital for antibiotic treatment, questioned if pt can get antibioitic at home. will follow up with ID consult and notify family once pt is cleared by ID to discharge.
[2020-02-15 16:18] VITALS: BP_SYST 130
--- NOTE | 2020-02-15 16:54 | NUR ---
temp 99.3,pt voided ruma urine again in bedpan,tracey care rendered,skin remains intact,covered blinds next to pt. repositioned for comfort,SCD on BLE.
[2020-02-15] MEDS: VANCOMYCIN HCL 1,000 MG in NS 250 ML IV SCH (17:38)
--- NOTE | 2020-02-15 17:58 | NUR ---
MD HONG FITZGERALD CALLED AT SPOKE WITH DR.KANGARLU MENESES SOPHIA SANDWICH WRAPPER.
--- NOTE | 2020-02-15 18:03 | NUR ---
ACCUCHECK 149 MG/DL,GIVE IV ANTIBIOTIC VANCOMYCIN DUE,PT ASKING TYLENOL FOR PAIN AND SAID SHE'S OK WITH IT EVEN IT'S ON PT ALLERGY LIST, CALLED AND PAGED.
--- NOTE | 2020-02-15 19:34 | NUR ---
called and obtained telephone order for tylenol prn for pain,checked with patient she said she is ok to take tylenol,and deleted tylenol from allergy list.endorsed report to scene shifter staff.
--- NOTE | 2020-02-15 19:40 | NUR ---
ROUNDS PATIENT RESTING COMFORTABLY IN BED, AWAKE, ALERT, ORIENTED, VITALS STABLE. DENIES ANY PAIN AND DISCOMFORT AT THIS TIME. ASSESSMENT DONE AND DOCUEMNTED. SEE FLOWSHEET. NEEDS ATTENDED TO. SAFETY AND FALL MEASURES IN PLACED. BED IN LOW AND LOCKED POSITION. CALL LIGHT PLACED WITHIN REACH.
[2020-02-15] MEDS ORDERED: traMADol HCL HCL 50 MG TABLET (ULTRAM) PO SCH (21:00)
--- NOTE | 2020-02-15 21:13 | NUR ---
MEDICATION DUE MEDICATIONS GIVEN ORDERED, TOLERATED WELL. WILL CONTINUE TO MONITOR.
--- NOTE | 2020-02-16 00:13 | NUR ---
PATIENT RESTING: Patient resting quietly. No acute distress noted. Vital signs within normal range.
[2020-02-16 00:34] VITALS: BP_SYST 135
--- NOTE | 2020-02-16 02:16 | NUR ---
ROUNDS PATIENT ASLEEP, RESPIRATIONS EVEN AND UNLABORED, WILL CONTINUE TO MONITOR.
--- NOTE | 2020-02-16 04:10 | NUR ---
ROUNDS PATIENT SLEEPING, VITALS STABLE, NO SOB NOTED, WILL CONTINUE TO MONITOR.
--- NOTE | 2020-02-16 06:22 | NUR ---
CLOSING NOTES PATIENT AWAKE, NO COMPLAINTS AT THIS TIME, ACCU CHECK DONE WITH BLOOD SUGAR OF 100. NO INSULIN COVERAGE PER SLIDING SCALE. ALL NEEDS ATTENDED TO. CALL LIGHT PLACED WITHIN REACH.
[2020-02-16 07:38] VITALS: BP_SYST 138
[2020-02-16 08:55] LABS: BASOPHILS # (AUTO) 0.1 K/uL (0.0-0.2); BASOPHILS % (AUTO) 1.2 % (0.0-2.0); EOSINOPHILS # (AUTO) 0.2 K/uL (0.0-0.4); EOSINOPHILS % (AUTO) 1.6 % (0.0-4.0); LYMPHOCYTES # (AUTO) 1.3 K/uL (1.0-5.5); LYMPHOCYTES % (AUTO) 11.3 % (20.5-51.5); MEAN CORPUSCULAR HEMOGLOBIN 28 pg (27-31); MEAN CORPUSCULAR HGB CONC 32 % (32-36); MEAN CORPUSCULAR VOLUME 86 fL (79.0-98.0); MONOCYTES # (AUTO) 0.8 K/uL (0.0-1.0); MONOCYTES % (AUTO) 7.4 % (1.7-9.3); NEUTROPHILS # (AUTO) 8.9 K/uL (1.8-7.7); NEUTROPHILS % (AUTO) 78.5 % (40.0-70.0); PLATELET COUNT (AUTO) 504 K/uL (130-430); RED BLOOD CELL COUNT(AUTO) 3.25 MIL/uL (4.2-6.2); RED CELL DISTRIBUTION WIDTH 17.1 % (9.0-15.0); WHITE BLOOD COUNT (AUTO) 11.3 K/uL (4.8-10.8)
[2020-02-16 09:13] LABS: ALBUMIN 1.8 g/dL (3.4-4.8); CALCIUM 9.3 mg/dL (8.4-11.0); CREATININE 1.03 mg/dL (0.55-1.30); POTASSIUM 3.6 mmol/L (3.5-5.1); TOTAL BILIRUBIN 0.8 mg/dL (0.0-1.0)
[2020-02-16] MEDS: PANTOPRAZOLE SODIUM 40 MG/VIAL (PROTONIX) IVP SCH ×2 (09:19→20:01)
[2020-02-16] MEDS: CYCLOBENZAPRINE HCL 10 MG TABLET (FLEXERIL) PO SCH ×3 (09:19→20:01)
[2020-02-16] MEDS: AMIODARONE HCL 200 MG TABLET PO SCH (09:19)
[2020-02-16] MEDS: AMOXICILLIN/CLAVULANATE POTASSIUM 500 MG TABLET PO SCH ×2 (09:26→20:01)
[2020-02-16] MEDS: ACETAMINOPHEN 325 MG TABLET PO PRN ×2 (09:26→18:39)
[2020-02-16 12:52] VITALS: BP_SYST 127
--- NOTE | 2020-02-16 13:23 | NUR ---
Patient refuses peripherally inserted central line at this time. Rationale education provided due to ad terminal makeup operator antibiotic vancomycin. Christiano Smith RN
[2020-02-16 14:59] LABS: INR 1.2 (0.8-1.2); PROTHROMBIN TIME 11.8 SECS (9.5-12.5)
--- NOTE | 2020-02-16 15:42 | NUR ---
Fax of order to [facility] with CM about antibiotic plan for discharge. Christiano Smith RN
[2020-02-16 16:47] VITALS: BP_SYST 125
[2020-02-16] MEDS: VANCOMYCIN HCL 1,000 MG in NS 250 ML IV SCH (17:29)
--- NOTE | 2020-02-16 18:17 | NUR ---
Patient consents to have peripherally inserted central catheter line placement. Request sent to electrician [facility] [employer]. Christiano Smith RN
--- NOTE | 2020-02-16 19:01 | NUR ---
Handoff to night team registered nurse. Christiano Smith RN
--- NOTE | 2020-02-16 19:35 | NUR ---
ROUNDS PATIENT RESTING COMFORTABLY IN BED, NOT IN DISTRESS, VITALS STABLE. DENIES ANY PAIN AND DISCOMFORT AT THIS TIME. ASSESSMENT DONE AND DOCUEMNTED. SEE FLOWSHEET. NEEDS ATTENDED TO. SAFETY AND FALL MEASURES IN PLACED. BED IN LOW AND LOCKED POSITION. CALL LIGHT PLACED WITHIN REACH.
[2020-02-16 20:00] VITALS: BP_SYST 128
--- NOTE | 2020-02-16 21:13 | NUR ---
MEDICATIONS DUE MEDICATIONS GIVEN SCHEDULED, TOLERATED WELL. WILL CONTINUE TO MONITOR.
--- NOTE | 2020-02-17 00:13 | NUR ---
PATIENT RESTING: Patient resting quietly. No acute distress noted. Vital signs within normal range.
[2020-02-17 01:08] VITALS: BP_SYST 121
--- NOTE | 2020-02-17 02:16 | NUR ---
ROUNDS PATIENT ASLEEP, RESPIRATIONS EVEN AND UNLABORED, WILL CONTINUE TO MONITOR.
--- NOTE | 2020-02-17 04:41 | NUR ---
ROUNDS PATIENT SLEEPING, RESPIRATIONS EVEN AND UNLABORED, WILL CONTINUE TO MONITOR.
[2020-02-17] MEDS: ACETAMINOPHEN 325 MG TABLET PO PRN ×3 (05:25→21:00)
--- NOTE | 2020-02-17 06:29 | NUR ---
MD HONG FITZGERALD CALLED AT SPOKE WITH DR.KANGARLU SALINAS SOPHIA LOSS CONTROL ENGINEER.
--- NOTE | 2020-02-17 06:35 | NUR ---
NOTES PAGED DR. VERMA, PATIENT C/O SEVERE PAIN AT THE BACK. WAITING FOR RETURN CALL.
--- NOTE | 2020-02-17 06:50 | NUR ---
CLOSING NOTES DR. VERMA CALLED BACK WITH NEW ORDER OF MORPHINE 2 MG X1. ALL NEEDS ATTENDED TO. SAFETY MEASURES MAINTAINED. CALL LIGHT PLACED WITHIN REACH. WILL ENDORSE TO INCOMING SHIFT NURSE.
[2020-02-17] MEDS ORDERED: MORPHINE 2 MG/ML INJ. SYRINGE IVP ONE (07:00)
[2020-02-17 08:00] VITALS: BP_SYST 127
--- NOTE | 2020-02-17 08:00 | NUR ---
initial notes rec patient awake alert with ivl edilberto arm inplace. no infiltration noted. resp easy and unlabored.no sob noted. bed to the lowest position and side rails up and locked. call light within reached and knows when to call for assistan willcontinue to monitor patient.
[2020-02-17] MEDS: CYCLOBENZAPRINE HCL 10 MG TABLET (FLEXERIL) PO SCH ×3 (08:18→20:50)
[2020-02-17] MEDS: PANTOPRAZOLE SODIUM 40 MG/VIAL (PROTONIX) IVP SCH ×2 (08:18→20:50)
[2020-02-17] MEDS: AMIODARONE HCL 200 MG TABLET PO SCH (08:19)
[2020-02-17] MEDS: AMOXICILLIN/CLAVULANATE POTASSIUM 500 MG TABLET PO SCH ×2 (08:21→20:50)
--- NOTE | 2020-02-17 10:00 | NUR ---
rounds resting comfortably at this time. due meds were given and reanna well. call light within reached.
[2020-02-17 10:02] LABS: BASOPHILS # (AUTO) 0.1 K/uL (0.0-0.2); BASOPHILS % (AUTO) 0.8 % (0.0-2.0); EOSINOPHILS # (AUTO) 0.2 K/uL (0.0-0.4); EOSINOPHILS % (AUTO) 1.5 % (0.0-4.0); HEMATOCRIT 27.5 % (36-48); LYMPHOCYTES # (AUTO) 1.2 K/uL (1.0-5.5); LYMPHOCYTES % (AUTO) 8.6 % (20.5-51.5); MEAN CORPUSCULAR HEMOGLOBIN 28 pg (27-31); MEAN CORPUSCULAR HGB CONC 33 % (32-36); MEAN CORPUSCULAR VOLUME 86 fL (79.0-98.0); MONOCYTES # (AUTO) 0.7 K/uL (0.0-1.0); MONOCYTES % (AUTO) 5.1 % (1.7-9.3); NEUTROPHILS # (AUTO) 11.8 K/uL (1.8-7.7); PLATELET COUNT (AUTO) 508 K/uL (130-430); RED BLOOD CELL COUNT(AUTO) 3.19 MIL/uL (4.2-6.2); RED CELL DISTRIBUTION WIDTH 17.6 % (9.0-15.0); WHITE BLOOD COUNT (AUTO) 14.1 K/uL (4.8-10.8)
[2020-02-17 10:04] LABS: CALCIUM 9.1 mg/dL (8.4-11.0); CREATININE 1.15 mg/dL (0.55-1.30); POTASSIUM 3.7 mmol/L (3.5-5.1)
[2020-02-17 11:32] LABS: ERYTHROCYTE SEDIMENTATION RATE 109 MM/HR (0-20)
[2020-02-17 11:38] LABS: C-REACTIVE PROTEIN QUANT 18.4 mg/dL (0-0.5)
--- NOTE | 2020-02-17 12:30 | NUR ---
rounds no hypo hyperglycemic reaction noted. seen by dr pierre and awaiting for dr pierre for pain med order.
[2020-02-17 12:34] VITALS: BP_SYST 126
--- NOTE | 2020-02-17 14:30 | NUR ---
rounds resting comfortably. call light within reached and uses the bedpan at intervals.
--- NOTE | 2020-02-17 16:00 | NUR ---
rounds uses the bedpan. turned repositioned and assisted at bedside. call light within reached.
[2020-02-17 16:23] VITALS: BP_SYST 136
--- NOTE | 2020-02-17 17:30 | NUR ---
rounds picc line was inserted at bedside on the right upper arm and in place. no infiltration noted. able to draw blood for the vanco through prior to infusion.
[2020-02-17] MEDS: VANCOMYCIN HCL 1,000 MG in NS 250 ML IV SCH ×2 (18:05→18:07)
--- NOTE | 2020-02-17 19:00 | NUR ---
closing notes still with her on and off pain. endorsed re pain meds for the next shift. no sob noted. bed to the lowest position and side rails up and locked.call light within reached.
--- NOTE | 2020-02-17 19:40 | NUR ---
ROUNDS PATIENT RESTING COMFORTABLY IN BED, VITALS STABLE, DENIES ANY PAIN AND DISCOMFORT AT THIS TIME. ASSESSMENT DONE AND DOCUMENTED. SEE FLOWSHEET. NEEDS ATTENDED TO. SAFETY AND FALL MEASURES IN PLACED. CALL LIGHT PLACED WITHIN REACH.
[2020-02-17] MEDS: GABAPENTIN 300 MG CAPSULE PO SCH (20:50)
--- NOTE | 2020-02-17 21:13 | NUR ---
MEDICATION DUE MEDICATIONS GIVEN ORDERED, TOLERATED WELL. WILL CONTINUE TO MONITOR.
--- NOTE | 2020-02-18 00:12 | NUR ---
ACCU CHECK BLOOD SUGAR CHECK DONE, BLOOD SUGAR 121, NO INSULIN COVERAGE PER SLIDING SCALE. WILL CONTINUE TO MONITOR.
[2020-02-18 01:50] VITALS: BP_SYST 135
--- NOTE | 2020-02-18 04:17 | NUR ---
PATIENT RESTING: Patient resting quietly. No acute distress noted. Vital signs within normal range.
--- NOTE | 2020-02-18 06:03 | NUR ---
CLOSING NOTES PATIENT AWAKE, VITALS STABLE, ACCU CHECK DONE. BLOOD SUGAR 97 WITH NO INSULIN COVERAGE. ALL NEEDS ATTENDED TO. SAFETY MEASURES MAINTAINED. CALL LIGHT PLACED WITHIN REACH.
[2020-02-18 08:00] VITALS: BP_SYST 132
--- NOTE | 2020-02-18 08:00 | NUR ---
INITIAL NOTES ALERT AND ORIENTED IN BED. NO SHORTNESS OF BREATH ON ROOM AIR. COMPLAINED OF BACK, HIP AND KNEE PAIN. ON CONTACT PRECAUTIONS. PICC LINE ON RIGHT UPPER ARM INTACT. ENCOURAGED TO EAT BREAKFAST. HELPED REPOSITION IN BED. FALL AND SAFETY CHECKS DONE. CALL LIGHT WITHIN REACH. WILL MEDICATE FOR PAIN.
[2020-02-18 08:02] LABS: BASOPHILS # (AUTO) 0.1 K/uL (0.0-0.2); BASOPHILS % (AUTO) 0.9 % (0.0-2.0); EOSINOPHILS # (AUTO) 0.3 K/uL (0.0-0.4); EOSINOPHILS % (AUTO) 2.6 % (0.0-4.0); HEMATOCRIT 26.5 % (36-48); HEMOGLOBIN 8.6 g/dL (12.0-16.0); LYMPHOCYTES # (AUTO) 1.2 K/uL (1.0-5.5); LYMPHOCYTES % (AUTO) 9.3 % (20.5-51.5); MEAN CORPUSCULAR HEMOGLOBIN 28 pg (27-31); MEAN CORPUSCULAR HGB CONC 32 % (32-36); MEAN CORPUSCULAR VOLUME 86 fL (79.0-98.0); MONOCYTES # (AUTO) 0.9 K/uL (0.0-1.0); MONOCYTES % (AUTO) 7.1 % (1.7-9.3); NEUTROPHILS # (AUTO) 10.5 K/uL (1.8-7.7); NEUTROPHILS % (AUTO) 80.1 % (40.0-70.0); PLATELET COUNT (AUTO) 498 K/uL (130-430); RED BLOOD CELL COUNT(AUTO) 3.07 MIL/uL (4.2-6.2); RED CELL DISTRIBUTION WIDTH 17.4 % (9.0-15.0); WHITE BLOOD COUNT (AUTO) 13.1 K/uL (4.8-10.8)
[2020-02-18 08:10] LABS: ALBUMIN 1.6 g/dL (3.4-4.8); CALCIUM 8.8 mg/dL (8.4-11.0); CREATININE 0.87 mg/dL (0.55-1.30); POTASSIUM 3.5 mmol/L (3.5-5.1); TOTAL BILIRUBIN 0.5 mg/dL (0.0-1.0)
[2020-02-18 08:56] LABS: C-REACTIVE PROTEIN QUANT 20.3 mg/dL (0-0.5)
[2020-02-18] MEDS: AMOXICILLIN/CLAVULANATE POTASSIUM 500 MG TABLET PO SCH ×2 (09:18→21:41)
[2020-02-18] MEDS: CYCLOBENZAPRINE HCL 10 MG TABLET (FLEXERIL) PO SCH ×3 (09:18→21:42)
[2020-02-18] MEDS: AMIODARONE HCL 200 MG TABLET PO SCH (09:23)
[2020-02-18] MEDS: PANTOPRAZOLE SODIUM 40 MG/VIAL (PROTONIX) IVP SCH ×2 (09:23→21:41)
[2020-02-18] MEDS: ACETAMINOPHEN 325 MG TABLET PO PRN ×2 (09:24→17:41)
--- NOTE | 2020-02-18 09:40 | NUR ---
MED PASS MORNING MEDICATIONS WELL TOLERATED. PATIENT ALSO ASKED FOR TYLENOL FOR PAIN. MEDICATED. WILL REASSESS.
--- NOTE | 2020-02-18 11:14 | NUR ---
TRANSFER OF CARE PATIENT IS STABLE, RESTING IN BED. WAITING FOR PHYSICAL THERAPY DAVID, PT STAFF DESTIN AWARE. ENDORSED FULL CARE TO MS. JULIAN RN.
[2020-02-18 11:27] LABS: ERYTHROCYTE SEDIMENTATION RATE 110 MM/HR (0-20)
--- NOTE | 2020-02-18 12:00 | NUR ---
report received from Kimber CHAKRABORTY. Pt is currently AAOx4. Contact precautions remain in place for gram negatvie rods in the urine and blood. RUE PICC line is in place double lumen. Will continue to monitor
--- NOTE | 2020-02-18 12:20 | NUR ---
Accu check done. No coverage.
--- NOTE | 2020-02-18 12:30 | NUR ---
Dr. Zamarripa at the bedside speaking w/ the pt.
[2020-02-18 12:37] VITALS: BP_SYST 128
--- NOTE | 2020-02-18 12:47 | NUR ---
HCP CM TYPEWRITERS FUNCTIONAL TESTER KATIE KAUR WAS CALLED, RE: PT WANTS TO TALK TO HER ABOUT HER DISCHARGED NEEDS. LEFT A VOICE MESSAGE.
[2020-02-18] MEDS ORDERED: PRO40 PO (14:49)
[2020-02-18 16:00] VITALS: BP_SYST 116
[2020-02-18] MEDS ORDERED: VANCOMYCIN HCL 1,250 MG in NS 250 ML IV SCH (18:00)
--- NOTE | 2020-02-18 18:00 | NUR ---
Current accu 131. No coverage needed
--- NOTE | 2020-02-18 18:43 | NUR ---
pt remains in stable condition. RUE PICC line is in place. Contact precautions are in place. Will endorse care to the oncoming nurse
[2020-02-18 20:00] VITALS: BP_SYST 120
--- NOTE | 2020-02-18 20:00 | NUR ---
OPENING NOTE THE PATIENT IS ALERT AND ORIENTED X4. STABLE VITAL SIGNS. REPORTS PAIN 4/10 IN THE LOWER LEGS AND WILL RECEIVE TYLENOL AT MIDNIGHT ACCORDING TO THE LAST DOSE ADMINISTERED. SHIFT'S PRIORITY IS TO MONITOR SIGNS AND SYMPTOMS OF SEPSIS, MANAGE PAIN, AND ADMINISTER MEDICATION ORDERED. BED IN LOW, BED ALARM ON, AND CALL LIGHT IN REACH.
[2020-02-18] MEDS: GABAPENTIN 300 MG CAPSULE PO SCH (21:42)
--- NOTE | 2020-02-18 23:45 | NUR ---
MIDNIGHT ROUNDING THE PATIENT IS SLEEPING. ROOM AIR. THERE IS NO SIGNS OF RESPIRATORY DISTRESS. BED IN LOW, CALL LIGHT IN REACH, AND BE ALARM ON.
[2020-02-19] MEDS: ACETAMINOPHEN 325 MG TABLET PO PRN ×3 (00:10→12:49)
[2020-02-19 01:04] VITALS: BP_SYST 112
--- NOTE | 2020-02-19 07:07 | NUR ---
CLOSING NOTE THE PATIENT IS ALERT AND ORIENTED X4. PROVIDED BED BATH, APPLIED BARRIER CREAM TO THE RED AREA IN THE BUTTOCKS. THE PATIENT IS COOPERATIVE PLAN TO GO HOME WITH PICC LINE AND IV VANCOMYOCIN FOR 2 WEEKS.
[2020-02-19 08:00] VITALS: BP_SYST 125
--- NOTE | 2020-02-19 08:00 | NUR ---
A/Ox4,afebrile,resting quietly in bed,needs attended,call light & personal items within pt reach,no distress observed,side rails up,safety maintained,continue to monitor pt.
[2020-02-19] MEDS: AMOXICILLIN/CLAVULANATE POTASSIUM 500 MG TABLET PO SCH (08:45)
[2020-02-19] MEDS: PANTOPRAZOLE SODIUM 40 MG/VIAL (PROTONIX) IVP SCH (08:46)
[2020-02-19] MEDS: CYCLOBENZAPRINE HCL 10 MG TABLET (FLEXERIL) PO SCH (08:46)
[2020-02-19] MEDS: AMIODARONE HCL 200 MG TABLET PO SCH (09:00)
--- NOTE | 2020-02-19 10:00 | NUR ---
came and seen pt.order received to d/c pt home today with home health.
[2020-02-19] MEDS ORDERED: POLYETHYLENE GLYCOL 3350, 17 GM/ POWD.PACK PO ONE (11:15)
[2020-02-19 11:23] VITALS: BP_SYST 138
--- NOTE | 2020-02-19 11:25 | NUR ---
Nutrition F/U Admitting Diagnosis: Sepsis Medical History Comment: Anemia, Hyperkalemia, Metabolic Acidosis, Renal Failure per ER MD documentation. PMH: DM, HTN, Hyperlipidemia. COVID-19 Negative x 2 02/11, 02/12 Subjective Information Pt s/p upper endoscopy on 02/13 and MD reported pt having a large duodenal ulcer, gastritis and superficial erosions, esophagitis, and hiatal hernia. RD s/w pt and she reported that she will be going home today. RD offered nutrition education but pt stated that she does not have any further questions regarding diet. Current Diet Order/Nutrition Support: GI Soft (low fiber/bland) x 4 days Pertinent Medications: Amiodarone, SSI, Vancomycin, Protonix IV Pertinent Labs 02/17 Na 136WNL, K 3.5WNL, BG 98 WNL (improved), BUN 17 WNL, CRE 0.87WNL, WBC 13.1 H 02/18 POC BG 136H Recent Weight Change Yes - 8# weight loss in 1 month per pt, reported UBW: 140#; no new wt changes since last RD visit Last BM Feb 13, 2020 - RD informed MYLENE Baker. Skin Integrity Comment: Noel scale: 20. No PI, noted. Current % PO Poor: 42% x last 6 meals Estimated Energy Expenditure (kcals/day) 1430-1161 kcal/day (30-35 kcal/kg CBW for sepsis) NEW Estimated Protein Required (g/day) 60-90gm/day (1-1.5 gm/kg CBW for Renal Dz predialysis and sepsis) Estimated Fluid Required (l/day) per MD (Renal Dz.) Problem/Etiology/Signs/Symptoms Altered nutrition-related labs r/t endocrine and renal dysfunction AEB elevated BG, POC BG, BUN and CRE lab values. *improving Increased risk for malnutrition r/t chronic illness AEB unintentional weight loss and poor PO intake for more than 1 week. *ongoing Expected Outcomes/Goals Monitor appetite and PO intake w/ goal of pt meeting at least 75% of estimated nutritional needs, labs trending WNL, normal GI function, skin integrity/wt maintenance. Dietitian Recommendations *Continue GI soft (low fiber/bland) diet per MD *Encourage pt to increase PO intake. *Recommend stool softener. Follow Up High Risk: F/U in 2-3days
--- NOTE | 2020-02-19 12:42 | NUR ---
called and spoke to HCP case filler mateo regarding home health antibiotic order. home health will start to give IV vanco tomorrow.and pt need to get dose of vanco today before discharge,however,pt refused to get vanco today and wants to go home immediately here notified & awared.d/c instruction given and explained,PICC line in MATA patent and intact,flushed well with NS and maintained in place for home antibiotic use. leaving via w/c.taken home by her .
--- NOTE | 2020-02-19 18:00 | NUR ---
[facility] called and inquired status of pt PICC line,faxed PICC line sheet to [phone].
[2020-02-20] MEDS ORDERED: POLYETHYLENE GLYCOL 3350, 17 GM/ POWD.PACK PO SCH (09:00)
== END 2020-02-19 12:30 | disposition home or self-care (01) | DRG 871 ==
LOC: SED 13:00 → STU 17:11 → SMU 02-18 11:10
PROVIDERS: ADMIT Internal Medicine Hospice and Palliative Medicine; ATTEND Internal Medicine Hospice and Palliative Medicine
PROC: 30233N1 Transfusion of Nonautologous Red Blood Cells into Peripheral Vein, Percutaneous Approach (ICD-10-PCS; 2020-02-11)
PROC: 0DB68ZX Excision of Stomach, Via Natural or Artificial Opening Endoscopic, Diagnostic (ICD-10-PCS; principal; 2020-02-14 07:35)
PROC: 02HV33Z Insertion of Infusion Device into Superior Vena Cava, Percutaneous Approach (ICD-10-PCS; 2020-02-18)
DX: A41.02 Sepsis due to Methicillin resistant Staphylococcus aureus (principal); N17.0 Acute kidney failure with tubular necrosis; K26.4 Chronic or unspecified duodenal ulcer with hemorrhage; E87.1 Hypo-osmolality and hyponatremia; M00.9 Pyogenic arthritis, unspecified; N39.0 Urinary tract infection, site not specified; R64 Cachexia; E87.5 Hyperkalemia; B96.1 Klebsiella pneumoniae [K. pneumoniae] as the cause of diseases classified elsewhere; D63.8 Anemia in other chronic diseases classified elsewhere; E11.22 Type 2 diabetes mellitus with diabetic chronic kidney disease; E11.65 Type 2 diabetes mellitus with hyperglycemia; I12.9 Hypertensive chronic kidney disease with stage 1 through stage 4 chronic kidney disease, or unspecified chronic kidney disease; I48.0 Paroxysmal atrial fibrillation; K20.9 Esophagitis, unspecified; K25.9 Gastric ulcer, unspecified as acute or chronic, without hemorrhage or perforation; K44.9 Diaphragmatic hernia without obstruction or gangrene; M17.0 Bilateral primary osteoarthritis of knee; M10.9 Gout, unspecified; E78.5 Hyperlipidemia, unspecified; N18.9 Chronic kidney disease, unspecified; Z96.652 Presence of left artificial knee joint; Z79.899 Other long term (current) drug therapy; Z88.8 Allergy status to other drugs, medicaments and biological substances; Z79.2 Long term (current) use of antibiotics; Z68.23 Body mass index [BMI] 23.0-23.9, adult; Z03.818 Encounter for observation for suspected exposure to other biological agents ruled out
CPT/HCPCS: 36415; 43235; 71045; 73564; 80048; 80053; 80202-TC; 81000-TC; 82550-TC; 82607; 82728; 82746; 82962; 83540-TC; 83550-TC; 83605; 83735-TC; 83880; 84100-TC; 84484; 85025; 85384-TC; 85610-TC; 85651-TC; 85730-TC; 86140; 86886; 86900; 86901; 86920; 87040-TC; 87086; 87186-TC; 88305; 88312; 88313; 93005; 96361; 96365; 96375; 97163; 97530-GP; 99291; C1751; C9113; G0378; J0610; J1815; J2060; J2250; J2543; J3010; J3370; J3490; J7030; J7040; J7050; P9021; U0003-CS